=== PATIENT | male | born 1935 | race Caucasian/White ===

== ENCOUNTER 2018-01-27 10:47 | Inpatient (IN) | payer MEDICARE, BC ==
[2018-01-27] MEDS ORDERED: Lidocaine 2% 100 MG/5 ML Syringe IVPUSH PRN (11:45)
[2018-01-27] MEDS ORDERED: EPINEPHrine 1:10,000 1 MG/10 ML Syringe IVPUSH PRN (11:45)
[2018-01-27] MEDS ORDERED: Atropine 0.1 MG/ML 10 ML Syringe IVPUSH PRN (11:45)
[2018-01-27] MEDS ORDERED: Nitroglycerin 0.4 MG Tab.SL SL PRN (11:45)
[2018-01-27] MEDS ORDERED: Metoprolol Tartrate 5 MG/5 ML SDV IVPUSH ONE (12:45)
[2018-01-27 13:09] LABS: ANION GAP 14.6 mmol/L (5-15); CHLORIDE,CL 107 mmol/L (98-115); SODIUM,NA 143 mmol/L (136-145)
[2018-01-27] MEDS ORDERED: Metoprolol Tartrate 25 MG Tab PO ONE (15:00)
[2018-01-27] MEDS: Rivaroxaban 10 MG Tab PO SCH (18:59)
[2018-01-27] MEDS: Metoprolol Tartrate 25 MG Tab PO SCH (21:13)
[2018-01-27] MEDS: atorvaSTATin 40 MG Tab PO SCH (21:14)
[2018-01-28 08:14] LABS: ANION GAP 12.7 mmol/L (5-15); CHLORIDE,CL 107 mmol/L (98-115); SODIUM,NA 143 mmol/L (136-145)
[2018-01-28] MEDS: Metoprolol Tartrate 25 MG Tab PO SCH ×2 (10:49→21:01)
--- NOTE | 2018-01-28 12:08 | PN ---
01/28/2018 PATIENT NAME: MARÍA ALCALA CHIEF COMPLAINT: None. Feels good. He has been ambulating in his room with the use of a cane. HISTORY OF PRESENT ILLNESS: This is a very pleasant 82-year-old gentleman who is very laconic and soft-spoken in speech, was admitted by Dr. Singh with an incidental finding of a new onset of atrial fibrillation with rapid ventricular response up to in the 140s. He was admitted for monitoring for hemodynamic instability, rate control efforts, and possible medical conversion. REVIEW OF SYSTEMS: CONSTITUTIONAL: The patient is calm, in no acute distress. CV: Denies any chest pain. Denies any palpitations. RESPIRATORY: Denies any shortness of breath. GI: No nausea, vomiting, or diarrhea or abdominal distention. PHYSICAL EXAMINATION: VITAL SIGNS: Blood pressure 120/57, heart rate 55 and regular, temperature is 97.6, the patient is 181 pounds, and O2 sats 95% on room air. LUNGS: Are clear to auscultation. No rhonchi, wheezes, or rales. CV: Regular rate and rhythm. Murmur noted. Carotid, no bruit. LABORATORY DATA: Labs on admission, BNP was 158. Electrolytes were normal. White count 5.2, hematocrit 49.3, INR 1.0. PRIMARY IMPRESSION: Paroxysmal atrial fibrillation, now in normal sinus rhythm, rate 55 to 60. [id number] score elevated at four. The patient opted for a Factor Xa inhibitor Xarelto. We will continue daily dosing. The patient was educated this morning regarding signs and symptoms of bleeding. Continue with rate control strategy. Metoprolol tartrate 25 mg p.o. b.i.d. We will monitor him on telemetry today. SECONDARY IMPRESSION: Includes hypertension. HLD, newly increased on statin therapy, history of CVA, now off aspirin. Dysphagia on thickened liquid diet. OVERALL PLAN: Today, continue with Xarelto, beta emily. Monitor heart rate. Have the patient ambulate on the floor today with assistance to monitor for any breakthrough atrial fibrillation. Anticipate discharge in the morning with home medication Xarelto. Recommendations at followup include outpatient echocardiogram. Medication compliance. /[id number]/MODL
[2018-01-28] MEDS: Rivaroxaban 10 MG Tab PO SCH (18:07)
[2018-01-28] MEDS: atorvaSTATin 40 MG Tab PO SCH (21:02)
[2018-01-29] MEDS: Metoprolol Tartrate 25 MG Tab PO SCH (09:24)
--- NOTE | 2018-01-29 13:08 | DISCH ---
ADMITTING DIAGNOSIS: New onset atrial fibrillation with rapid ventricular response with slight hypotension. FINAL DIAGNOSIS: paroxysmal atrial fibrillation, on chronic anticoagulation therapy. BRIEF HISTORY AND ESSENTIAL PHYSICAL FINDINGS: This is an 82-year-old gentleman who has a history of a stroke, who is nonverbal due to a stroke. He does understand the spoken language very well. He usually writes his questions down on a piece of paper. He was admitted to Dr. Singh on with incidental findings of new onset atrial fibrillation with rapid ventricular response in the 140 beats per minute. The patient was just feeling sluggish, fatigued. He denies any chest pain or shortness of breath. He was just not feeling well. No energy. He was admitted to the hospital at that time. Today, the patient states that he is feeling well and would like to go home. He understands the medication Xarelto, he has read through the material. He also understands the metoprolol, we are going to send him home on for hopefully rate control and/or to keep him in sinus rhythm. He has been walking in the halls and feels fine to go home. SIGNIFICANT LABS XRAYS AND CONSULTATION FINDINGS: The patient's lab work on admission, CBC showed a white count within normal range at 5.2, hemoglobin 16.2, platelet count at 214; PT was 9.9, INR of 1.0. Chemistry panel was unremarkable except for BUN slightly elevated at 26. Brain natriuretic peptide was very slightly elevated at 158. Repeat lab work on 01/28/2018, basic metabolic panel was unremarkable. EKG that was obtained in the clinic, I do not have that in front of me, but documented that he was in atrial fibrillation at that time with rapid ventricular response. The patient is in sinus rhythm today with a rate of 54 beats per minute. COURSE IN HOSPITAL WITH COMPLICATIONS IF ANY: The patient seemed to improve once he was placed on metoprolol and his rate went to a sinus rhythm to sinus lowell. He felt more energetic and no longer felt fatigued. He has been up walking in the halls. No problems while in the hospital. No signs of bleeding once been started on the Xarelto. CONDITION TREATMENT AND FINAL DISPOSITION ON DISCHARGE AND PROGNOSIS: Condition is stable. Final disposition will be home with his at [place] [address] [place], [place]. IMPRESSION AND PLAN: 1. New onset atrial fibrillation paroxysmal. Plan: We are going to send the patient home on Xarelto 20 mg daily along with metoprolol tartrate 25 mg twice a day. 2. History of hyperlipidemia. Plan: Continue with atorvastatin 40 mg daily. OVERALL PLAN: I am going to send the patient home with his today. He will follow up in the clinic next week with Fay Duran PA-C in [place]. His discharge medications will be metoprolol tartrate 25 mg twice a day along with Xarelto 20 mg daily. He also will continue on atorvastatin 40 mg daily. The patient seems to be doing well and is eager to go home. /[id number]/MODL MTDD
== END 2018-01-29 11:45 | disposition home or self-care (01) | DRG 310 ==
LOC: KA.MS 11:23
PROVIDERS: ADMIT Family Medicine; ATTEND Family Medicine
DX: I48.0 Paroxysmal atrial fibrillation (principal); I95.9 Hypotension, unspecified; I69.320 Aphasia following cerebral infarction; E78.5 Hyperlipidemia, unspecified; R13.10 Dysphagia, unspecified; Z79.01 Long term (current) use of anticoagulants
CPT/HCPCS: 36415; 80048; 80053; 83880; 84484; 85025; 85610; 93005; A9270-GY; J3490

== ENCOUNTER 2019-04-08 10:05 | Emergency (ER) | payer MEDICARE, BC ==
--- NOTE | 2019-04-08 11:31 | EDM.PDOC ---
ED HPI GENERAL MEDICAL PROBLEM - General Chief Complaint: Upper Extremity Injury/Pain Stated Complaint: FALL--HURT RIGHT WRIST Time Seen by Provider: 04/08/19 10:25 Source of Information: Reports: Patient, Family () History Limitations: Reports: Language Barrier (previous stroke unable to speak) - History of Present Illness INITIAL COMMENTS - FREE TEXT/NARRATIVE: 83-year-old male presents emergency room Today by his for an injury to his right wrist. He fell off a step yesterday bracing his fall and landing on extended right wrist. He is complaining of pain and swelling over the right wrist today. He is non-communicable due to history of 3 previous strokes. His reports he does get some weakness on his right side up. Comes in today for further evaluation for his a right wrist injury. He denies any pain in his forearm elbow or shoulder. He denies any pain in his hand. Onset Date: 04/07/19 Location: Reports: Upper Extremity, Right Quality: Reports: Ache Severity: Moderate Improves with: Reports: Rest Worsens with: Reports: Movement Associated Symptoms: Reports: Other (swelling right wrist) Right Wrist Pain Score (Numeric/FACES): 5 - Related Data Allergies Allergy/AdvReac Type Severity Reaction Status Date / Time diphenhydramine Allergy Anaphylactic Verified 04/08/19 10:24 [From Benadryl] Shock Home Meds: Home Meds Simvastatin [Zocor] 20 mg PO BEDTIME 01/27/18 [History] Rivaroxaban [Xarelto] 20 mg PO DAILY #18 tablet 01/29/18 [Rx] Past Medical History HEENT History: Reports: Impaired Vision Respiratory History: Reports: SOB Musculoskeletal History: Reports: Arthritis, Osteoarthritis Neurological History: Reports: CVA - Infectious Disease History Infectious Disease History: Reports: Measles - Past Surgical History HEENT Surgical History: Reports: None Neurological Surgical History: Reports: None Musculoskeletal Surgical History: Reports: Knee Replacement Other Musculoskeletal Surgeries/Procedures:: patti knee Social & Family History - Family History Family Medical History: Noncontributory - Tobacco Use Smoking Status *Q: Former Smoker Used Tobacco, but Quit: Yes Month/Year Tobacco Last Used: 1969 - Caffeine Use Caffeine Use: Reports: Coffee, Soda, Tea Caffeine Use Comment: 2 cups in the morning - Recreational Drug Use Recreational Drug Use: No Review of Systems - Review of Systems Review Of Systems: ROS reveals no pertinent complaints other than HPI. ED EXAM, GENERAL - Physical Exam Exam: See Below Exam Limited By: Language Barrier General Appearance: Alert, WD/WN, No Apparent Distress Nose: Normal Inspection Head: Atraumatic Neck: Normal Inspection Respiratory/Chest: No Respiratory Distress Extremities: Other (Right upper extremity examination shows swelling over the dorsum aspect of the right wrist has tenderness over the distal radius. Has no ulnar sided tenderness. He has limited range of motion the right wrist but also has limited range of motion of his left wrist. He is able to move his fingers without discomfort. He has no tenderness or pain in the forearm or upper extremity. He has no pain with gentle pronation or supination of his at the elbow he has no radial head tenderness. Is no pain or discomfort with gentle motion of his shoulder or elbow.) Neurological: Alert, Oriented, No Motor/Sensory Deficits Skin Exam: Warm, Dry, Intact, Normal Color, No Rash Course - Vital Signs Last Recorded V/S: Last Vital Signs Temp 97.8 F 04/08/19 10:19 Pulse 88 04/08/19 10:19 Resp 18 04/08/19 10:19 BP 140/62 04/08/19 10:19 Pulse Ox 98 04/08/19 10:19 - Orders/Labs/Meds Orders: Active Orders 24 hr Category Date Time Status Wrist Comp Min 3V Lt [CR] Routine Exams 04/08/19 11:21 Ordered Wrist Comp Min 3V Rt [CR] Stat Exams 04/08/19 10:33 Ordered - Radiology Interpretation Free Text/Narrative:: xray Right wrist DJD Right Wrist xray left wrist advanced djd left wrist Departure - Departure Time of Disposition: 11:50 Disposition: Home, Self-Care 01 Condition: Good Clinical Impression: Right wrist effusion Degenerative joint disease of right wrist Qualifiers: Osteoarthritis type: primary Qualified Code(s): M19.031 - Primary osteoarthritis, right wrist Sprain of right wrist Qualifiers: Encounter type: initial encounter Qualified Code(s): S63.501A - Unspecified sprain of right wrist, initial encounter - Discharge Information Instructions: RICE Therapy for Routine Care of Injuries, [id number], Wrist Sprain, Adult, Wrist Fracture Treated With Immobilization, [id number] Referrals: Fay Duran PA-C [Primary Care Provider] - Forms: ED Department Discharge - My Orders Last 24 Hours: My Active Orders 04/08/19 10:33 Wrist Comp Min 3V Rt [CR] Stat 04/08/19 11:21 Wrist Comp Min 3V Lt [CR] Routine - Assessment/Plan Last 24 Hours: My Active Orders 04/08/19 10:33 Wrist Comp Min 3V Rt [CR] Stat 04/08/19 11:21 Wrist Comp Min 3V Lt [CR] Routine Assessment:: 1. Right wrist effusion 2. Right wrist DJD 3. Right wrist sprain Plan: 1. Cockup wrist splint for 2 weeks. 2. R.I.C.E. 3. Ice packs 4. Ibuprofen for pain and swelling as needed 5. Follow-up with primary care in 2 weeks
--- NOTE | 2019-04-08 12:22 | CR ---
[id number] RAD/RAD Wrist Left 3V Min EXAM: RAD Wrist Left 3V Min CLINICAL DATA: TRAUMA COMPARISON: NO PREVIOUS SIMILAR EXAM IS AVAILABLE. FINDINGS: Chronic deformity of the carpal bones and first carpometacarpal joint are seen There is no fracture or dislocation Degenerative changes of the first interphalangeal joint also are seen. IMPRESSION: EXTENSIVE DEGENERATIVE CHANGES NO FRACTURE OR DISLOCATION Jaiden Wiggins MD 04/08/19 7002 Thank you for allowing us to participate in the care of your patient.
--- NOTE | 2019-04-08 12:23 | CR ---
[id number] RAD/RAD Wrist Right 3V Min EXAM: RAD Wrist Right 3V Min CLINICAL DATA: TRAUMA COMPARISON: NO PREVIOUS SIMILAR EXAM IS AVAILABLE. FINDINGS: Extensive degenerative changes are seen There is no acute fracture or dislocation. IMPRESSION: EXTENSIVE DEGENERATIVE CHANGES. Jaiden Wiggins MD 04/08/19 4528 Thank you for allowing us to participate in the care of your patient.
== END 2019-04-08 11:30 | disposition home or self-care (01) ==
LOC: KA.ED 10:05
DX: S63.501A Unspecified sprain of right wrist, initial encounter (principal); M19.031 Primary osteoarthritis, right wrist; Z86.73 Personal history of transient ischemic attack (TIA), and cerebral infarction without residual deficits; Z79.899 Other long term (current) drug therapy; Z87.891 Personal history of nicotine dependence; Z88.8 Allergy status to other drugs, medicaments and biological substances; W10.9XXA Fall (on) (from) unspecified stairs and steps, initial encounter
CPT/HCPCS: 73110-LT; 73110-RT; 99283-25; 99284

== ENCOUNTER 2019-08-03 17:31 | Inpatient (IN) | payer MEDICARE, BC ==
--- NOTE | 2019-08-03 18:28 | EDM.PDOC ---
ED HPI GENERAL MEDICAL PROBLEM - General Chief Complaint: Laceration Stated Complaint: FALL Time Seen by Provider: 08/03/19 17:32 Source of Information: Reports: Patient History Limitations: Reports: Other (Patient is nonverbal due to stroke a few years ago that also affected right arm.) - History of Present Illness INITIAL COMMENTS - FREE TEXT/NARRATIVE: Patient presents with laceration near left eye that occurred when he fell while doing some exercises at the [place] at 3:00 this afternoon. It was witnessed by staff and there was no LOC or vomiting. Patient hit his head on the floor when he fell. He denies neck pain, vision change or pain anywhere else but left eye area. He is on Xarelto and was evaluated in the clinic by Fay Duran and Dr. Singh who felt he should come to ER for head CT. 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) - Related Data Allergies Allergy/AdvReac Type Severity Reaction Status Date / Time No Known Drug Allergies Allergy Cannot Verified 08/03/19 17:45 Remember Home Meds: Home Meds Simvastatin [Zocor] 20 mg PO BEDTIME 01/27/18 [History] Rivaroxaban [Xarelto] 20 mg PO DAILY #18 tablet 01/29/18 [Rx] Diltiazem HCl [Dilt-XR] 120 mg PO DAILY 08/03/19 [History] Ergocalciferol (Vitamin D2) [Vitamin D2] 50,000 unit PO WEEKLY 08/03/19 [History ] Loratadine [Claritin] 10 mg PO DAILY PRN 08/03/19 [History] Magnesium Oxide [Magnesium] 500 mg PO DAILY 08/03/19 [History] Metoprolol Tartrate 37.5 mg PO BID 08/03/19 [History] Non-Formulary Medication [NF Drug] 1 applic TOP BID 08/03/19 [History] Triamcinolone Acetonide [Triamcinolone Acetonide 0.5%] 1 applic TOP BID [History] Past Medical History HEENT History: Reports: Impaired Vision Respiratory History: Reports: SOB Musculoskeletal History: Reports: Arthritis, Osteoarthritis Neurological History: Reports: CVA - Infectious Disease History Infectious Disease History: Reports: Measles - Past Surgical History HEENT Surgical History: Reports: None Neurological Surgical History: Reports: None Musculoskeletal Surgical History: Reports: Knee Replacement Other Musculoskeletal Surgeries/Procedures:: patti knee Social & Family History - Family History Family Medical History: Noncontributory - Caffeine Use Caffeine Use: Reports: Coffee, Soda, Tea Caffeine Use Comment: 2 cups in the morning ED ROS GENERAL - Review of Systems Review Of Systems: Comprehensive ROS is negative, except as noted in HPI. ED EXAM, SKIN/RASH Exam: See Below Exam Limited By: Other (nonverbal due to stroke) General Appearance: Alert, WD/WN, No Apparent Distress Eye Exam: Bilateral Eye: EOMI, Normal Inspection, PERRL Ears: Normal External Exam, Normal Canal, Hearing Grossly Normal, Normal TMs Nose: Normal Inspection, No Blood Throat/Mouth: Normal Inspection, Normal Lips, Normal Voice, No Airway Compromise Head: Other (Gaping laceration superolateral to left eye.) Neck: Normal Inspection, Supple, Non-Tender, Full Range of Motion. No: Tender Lateral, Tender Midline Respiratory/Chest: No Respiratory Distress, Lungs Clear, Normal Breath Sounds, No Accessory Muscle Use Cardiovascular: Regular Rate, Rhythm, No Murmur GI/Abdominal: Normal Bowel Sounds, Soft, Non-Tender, No Organomegaly, No Distention Back Exam: Normal Inspection, Full Range of Motion Extremities: Normal Inspection, Normal Range of Motion, No Pedal Edema, Other ( no pain with full PROM of bilat upper and lower extremities.) Neurological: Alert, Oriented, CN II-XII Intact, Normal Cognition, No Motor/ Sensory Deficits Psychiatric: Normal Affect, Normal Mood Skin: Warm, Dry, Intact (except CC), Normal Color, No Rash ED SKIN PROCEDURES - Laceration/Wound Repair Left Lateral Forehead Appearance: Subcutaneous, Stellate, Clean Distal NVT: Neuro & Vascular Intact Anesthetic Type: Local Local Anesthesia - Lidocaine (Xylocaine): 1% with EPI Local Anesthetic Volume: 3cc Skin Prep: Chlorhexidine (Hibiciens) Exploration/Debridement/Repair: Wound Explored Closed with: Sutures Lac/Wound length In cm: 4 Suture Size: 5-0 # of Sutures: 8 Suture Type: Nylon, Interrupted, Simple Drain Placement: No Sterile Dressing Applied: Nurse Tetanus Status Addressed: Other (we are trying to find out from [place] but this was not exposed to dirt or outdoor environment) Complications: No Course - Vital Signs Last Recorded V/S: Last Vital Signs Temp 96.2 F 08/03/19 17:37 Pulse 117 H 08/03/19 17:37 Resp 18 08/03/19 17:37 BP 143/83 H 08/03/19 17:37 Pulse Ox - Orders/Labs/Meds Orders: Active Orders 24 hr Category Date Time Status Head wo Cont [CT] Stat Exams 08/03/19 17:52 Ordered - Re-Assessments/Exams Free Text/Narrative Re-Assessment/Exam: 08/03/19 18:53 CT of head shows thickening of right cerebellar tentorium that could be either chronic due to encephalomalacia from an old infarct or could be a small amount of acute subarachnoid blood. Radiologist recommends either repeat CT in 24 hours or frequent neuro checks for any change. I discussed findings and recommendations with Dr. Singh who wants to keep him in observation for neuro checks and will decide on CT in the morning. Patient is stable. 08/03/19 19:41 Laceration of left lateral eyebrow, eyelid and forehead was performed using sterile technique as described in procedure note. Patient tolerated the procedure well. We found in his records that he isn't due for tetanus update until February 2021. Stable at time of admission to observation. Departure - Departure Time of Disposition: 19:44 Disposition: Refer to Observation Condition: Good Clinical Impression: Facial laceration Qualifiers: Encounter type: initial encounter Qualified Code(s): S01.81XA - Laceration without foreign body of other part of head, initial encounter Laceration of eyebrow, left Qualifiers: Encounter type: initial encounter Qualified Code(s): S01.112A - Laceration without foreign body of left eyelid and periocular area, initial encounter Laceration of eyelid and periocular area Qualifiers: Encounter type: initial encounter Laterality: left Qualified Code(s): S01.112A - Laceration without foreign body of left eyelid and periocular area, initial encounter - Discharge Information Referrals: Fay Duran PA-C [Primary Care Provider] - Sepsis Event Note - Evaluation Sepsis Screening Result: No Definite Risk - Focused Exam Vital Signs: Vital Signs Temp Pulse Resp BP 08/03/19 17:37 96.2 F 117 H 18 143/83 H Date Exam was Performed: 08/03/19 Time Exam was Performed: 18:22 - My Orders Last 24 Hours: My Active Orders 08/03/19 17:52 Head wo Cont [CT] Stat - Assessment/Plan Last 24 Hours: My Active Orders 08/03/19 17:52 Head wo Cont [CT] Stat
--- NOTE | 2019-08-03 18:36 | CT ---
[id number] CT/CT Head WO IV EXAM: CT Head WO IV CLINICAL DATA: FALL. COMPARISON STUDY: 2012. FINDINGS: Thickening of the right cerebellar tentorium compared to the left with increased density findings are seen best on coronal imaging on series 6 image 42. This could represent chronic dural thickening as it is adjacent to an area of encephalomalacia from an old infarction. However a small amount of acute subarachnoid blood is also possible. Follow-up examination within 12 and 24 hours can be performed to evaluate for stability or resolution of these findings as clinically warranted. No other potentially acute findings in the brain. Paranasal sinuses and mastoid air cells are clear. IMPRESSION: Possible small amount of subarachnoid blood layering on the right cerebellar tentorium, described above with recommendations. Results relayed to Calin Smith at time of dictation. George Wang MD 08/03/19 5640 Thank you for allowing us to participate in the care of your patient.
[2019-08-03] MEDS ORDERED: Lidocaine 1% 20 ML MDV ONE (19:05)
[2019-08-03] MEDS ORDERED: Lidocaine 1% 20 ML MDV INJECT ONE (19:13)
[2019-08-03] MEDS ORDERED: Bacitracin/Neomycin/Polymyxin B Oint 0.9 GM U/D Packet ONE (19:33)
[2019-08-03] MEDS ORDERED: Acetaminophen 325 MG Tab PO PRN (21:16)
[2019-08-03] MEDS: Simvastatin 20 MG Tab PO SCH (21:40)
[2019-08-03] MEDS: Metoprolol Tartrate 25 MG Tab PO SCH (21:41)
[2019-08-04] MEDS ORDERED: Diltiazem 120 MG Cap.CD PO SCH (09:00)
[2019-08-04] MEDS: Rivaroxaban 10 MG Tab PO SCH (09:43)
[2019-08-04] MEDS: Magnesium Oxide 500 MG Tab PO SCH (09:43)
--- NOTE | 2019-08-04 09:43 | PCM.DCSUM1 ---
Discharge Summary - Hospital Course Diagnosis: Stroke: No - Discharge Data Discharge Date: 08/04/19 Discharge Disposition: DC/Tfer to SNF 03 Condition: Good - Referral to Home Health Primary Care Physician: Fay Duran PA-C - Discharge Plan Home Medications: Home Meds Simvastatin [Zocor] 20 mg PO BEDTIME 01/27/18 [History] Rivaroxaban [Xarelto] 20 mg PO DAILY #18 tablet 01/29/18 [Rx] Diltiazem HCl [Dilt-XR] 120 mg PO DAILY 08/03/19 [History] Ergocalciferol (Vitamin D2) [Vitamin D2] 50,000 unit PO WEEKLY 08/03/19 [History ] Loratadine [Claritin] 10 mg PO DAILY PRN 08/03/19 [History] Magnesium Oxide [Magnesium] 500 mg PO DAILY 08/03/19 [History] Metoprolol Tartrate 37.5 mg PO BID 08/03/19 [History] Non-Formulary Medication [NF Drug] 1 applic TOP BID 08/03/19 [History] Triamcinolone Acetonide [Triamcinolone Acetonide 0.5%] 1 applic TOP BID [History] Forms: ED Department Discharge Referrals: Fay Duran PA-C [Primary Care Provider] - - General Info Date of Service: 08/04/19 Functional Status: Reports: Pain Controlled, Tolerating Diet. Denies: Ambulating, New Symptoms - Review of Systems General: Reports: Weakness (on right side stated at baseline). Denies: Fatigue , Chills, Night Sweats HEENT: Reports: Eye Pain (laceration and bruising on left eye), Glasses (states were broken during fall). Denies: Headaches, Visual Changes Pulmonary: Reports: Cough (chronic). Denies: Shortness of Breath, Sputum, Hemoptysis, Wheezing Cardiovascular: Reports: Edema (right leg). Denies: Chest Pain, Lightheadedness Gastrointestinal: Reports: Difficulty Swallowing (previous stroke). Denies: Abdominal Pain, Constipation, Decreased Appetite, Diarrhea, Nausea, Vomiting Genitourinary: Denies: Dysuria, Hematuria Musculoskeletal: Reports: No Symptoms. Denies: Neck Pain, Shoulder Pain, Arm Pain, Back Pain Skin: Reports: Bruising (under left eye), Other (telfa dressing intact over laceration to left side of head by eye) Neurological: Reports: Pre-Existing Deficit (right sided facial droop, right sided weakness from previous strokes), Trouble Speaking (communication via board with pen and paper), Difficulty Walking, Weakness (right side). Denies: Confusion, Dizziness, Headache, Numbness, Paresthesia, Seizure, Tingling, Change in Speech Psychiatric: Reports: No Symptoms. Denies: Confusion, Depression, Mood Lability , Anxiety - Patient Data Vitals - Most Recent: Last Vital Signs Temp 36.9 C 08/04/19 06:30 Pulse 123 H 08/04/19 06:30 Resp 18 08/04/19 06:30 BP 112/70 08/04/19 06:30 Pulse Ox 96 08/04/19 06:30 Weight - Most Recent: 72.529 kg I&O - Last 24 hours: Intake & Output 08/03/19 08/04/19 08/04/19 22:59 06:59 14:59 Intake Total 0 Balance 0 Med Orders - Current: Current Medications Acetaminophen (Tylenol) 650 mg PO Q4H PRN PRN Reason: Pain (Mild 1-3)/fever Diltiazem HCl (Cardizem Cd) 120 mg PO DAILY [facility] Magnesium Oxide (Magnesium Oxide) 500 mg PO DAILY [facility] Metoprolol Tartrate (Lopressor) 37.5 mg PO BID [facility] Last Admin: 08/03/19 21:41 Dose: 37.5 mg Rivaroxaban (Xarelto) 20 mg PO DAILY [facility] Simvastatin (Zocor) 20 mg PO BEDTIME [facility] Last Admin: 08/03/19 21:40 Dose: 20 mg Discontinued Medications Lidocaine HCl (Xylocaine 1%) Confirm Administered Dose 20 ml .ROUTE .STK-MED ONE Stop: 08/03/19 19:06 Last Admin: 08/03/19 19:14 Dose: Not Given Lidocaine HCl (Xylocaine 1%) 3.5 ml INJECT ONETIME ONE Stop: 08/03/19 19:14 Last Admin: 08/03/19 19:15 Dose: 3.5 ml Neomycin/Polymyxin/Bacitracin (Triple Antibiotic Oint) Confirm Administered Dose 1 each .ROUTE .STK-MED ONE Stop: 08/03/19 19:34 Last Admin: 08/03/19 19:46 Dose: 1 each - Exam Quality Assessment: Denies: Supplemental Oxygen General: Reports: Alert, Oriented, Cooperative, No Acute Distress HEENT: Reports: Pupils Equal, Pupils Reactive, Mucous Membr. Moist/[place]. Denies : EOMI (EOM not smooth, moves head) Neck: Reports: Supple, Trachea Midline, No JVD Lungs: Reports: Rhonchi (right mid and right upper lobes), Wheezing (expiratory wheezing throughout) Cardiovascular: Reports: No Murmurs, Irregular Rhythm, Tachycardia GI/Abdominal Exam: Normal Bowel Sounds, Soft, Non-Tender, No Distention (Male) Exam: Deferred Rectal (Males) Exam: Deferred Back Exam: Reports: Normal Inspection. Denies: Paraspinal Tenderness, Vertebral Tenderness Extremities: Normal Capillary Refill, Pedal Edema (RLE 2+ with mild erythema), Other (right lateral knee edematous from previous injury on the lateral side of the knee) Skin: Reports: Warm, Dry, Intact Wound/Incisions: Reports: Dressing Dry and Intact (left side of head muslim area ), No Drainage Neurological: Reports: Sensation Intact. Denies: Normal Speech, Strength Equal Bilateral (woodworking belt sander strength on right 3/5; woodworking belt sander strength on left 4/5) Psy/Mental Status: Reports: Alert, Normal Affect, Normal Mood
--- NOTE | 2019-08-04 10:07 | PCM.HP.2 ---
H&P History of Present Illness - General Date of Service: 08/03/19 Admit Problem/Dx: Admission Diagnosis/Problem Admission Diagnosis/Problem Head injury without skull fracture - Related Data Allergies/Adverse Reactions: Allergies Allergy/AdvReac Type Severity Reaction Status Date / Time No Known Drug Allergies Allergy Cannot Verified 08/03/19 17:45 Remember Home Medications: Home Meds Simvastatin [Zocor] 20 mg PO BEDTIME 01/27/18 [History] Rivaroxaban [Xarelto] 20 mg PO DAILY #18 tablet 01/29/18 [Rx] Diltiazem HCl [Dilt-XR] 120 mg PO DAILY 08/03/19 [History] Ergocalciferol (Vitamin D2) [Vitamin D2] 50,000 unit PO WEEKLY 08/03/19 [History ] Loratadine [Claritin] 10 mg PO DAILY PRN 08/03/19 [History] Magnesium Oxide [Magnesium] 500 mg PO DAILY 08/03/19 [History] Metoprolol Tartrate 37.5 mg PO BID 08/03/19 [History] Non-Formulary Medication [NF Drug] 1 applic TOP BID 08/03/19 [History] Triamcinolone Acetonide [Triamcinolone Acetonide 0.5%] 1 applic TOP BID [History] Dimethicone/Petrolatum,White [Sensi-Care Body Cream] 1 gm TP BID 08/04/19 [ History] Menthol/Camphor [Sarna Anti-Itch Lotion] 1 ml TP QID PRN 08/04/19 [History] Past Medical History HEENT History: Reports: Impaired Vision Cardiovascular History: Reports: Afib, High Cholesterol, Hypertension Respiratory History: Reports: SOB Gastrointestinal History: Reports: None Genitourinary History: Reports: Other (See Below) Other Genitourinary History: Dysuria Musculoskeletal History: Reports: Arthritis, Osteoarthritis Neurological History: Reports: CVA, Speech Problems, Other (See Below) Other Neuro History: Expressive Aphasia Psychiatric History: Reports: None Endocrine/Metabolic History: Reports: None Dermatologic History: Reports: Other (See Below) Other Dermatologic History: Cellulitis to Rt Leg - Infectious Disease History Infectious Disease History: Reports: Measles - Past Surgical History HEENT Surgical History: Reports: Other (See Below) Other HEENT Surgeries/Procedures: Dysphagia Cardiovascular Surgical History: Reports: Carotid Endarterectomy Respiratory Surgical History: Reports: None GI Surgical History: Reports: None Endocrine Surgical History: Reports: None Neurological Surgical History: Reports: Lumbar Spine Musculoskeletal Surgical History: Reports: Knee Replacement Other Musculoskeletal Surgeries/Procedures:: Jared knee Dermatological Surgical History: Reports: None Social & Family History - Family History Family Medical History: Noncontributory - Tobacco Use Smoking Status *Q: Former Smoker Years of Tobacco use: 4 Used Tobacco, but Quit: Yes Month/Year Tobacco Last Used: 1970 - Caffeine Use Caffeine Use: Reports: None Caffeine Use Comment: 2 cups in the morning - Recreational Drug Use Recreational Drug Use: No H&P Review of Systems - Review of Systems: Review Of Systems: See Below General: Reports: Weakness (right sided weakness from previous strokes). Denies : Fever, Chills, Malaise HEENT: Reports: Glasses (broke in fall). Denies: Eye Pain, Headaches, Visual Changes Pulmonary: Denies: Shortness of Breath Cardiovascular: Reports: Edema (RLE). Denies: Chest Pain, Palpitations, Lightheadedness Gastrointestinal: Denies: Abdominal Pain, Nausea, Vomiting Genitourinary: Reports: No Symptoms Musculoskeletal: Reports: No Symptoms. Denies: Neck Pain, Back Pain, Leg Pain Skin: Reports: Bruising (under left eye), Erythema (RLE) Psychiatric: Denies: Confusion Neurological: Reports: Pre-Existing Deficit (right sided weakness due to previous strokes), Trouble Speaking (pre existing, patient communicates with paper and pen), Weakness (right sided pre existing ). Denies: Confusion, Dizziness, Headache, Syncope, Change in Speech Exam - Exam Exam: See Below - Vital Signs Vital Signs: Last Vital Signs Temp 36.9 C 08/04/19 06:30 Pulse 123 H 08/04/19 06:30 Resp 18 08/04/19 06:30 BP 112/70 08/04/19 06:30 Pulse Ox 96 08/04/19 06:30 Weight: 72.529 kg - Exam Quality Assessment: No: Supplemental Oxygen General: Alert, Oriented, Cooperative HEENT: Hearing Intact, Pupils Equal, Pupils Reactive. No: EOMI (difficulty with EOM, unsure if pre-existing from prior CVA) Neck: Supple, Trachea Midline Lungs: Crackles (right mid and upper), Wheezing (expiratory bilaterally) Cardiovascular: Irregular Rhythm, Tachycardia. No: Systolic Murmur, Diastolic Murmur GI/Abdominal Exam: Normal Bowel Sounds, Soft, Non-Tender, No Distention (Male) Exam: Deferred Rectal (Males) Exam: Deferred Back Exam: Normal Inspection. No: Paraspinal Tenderness, Vertebral Tenderness Extremities: Pedal Edema (RLE edema 2+, no edema LLE), Increased Warmth (RLE, especially over edematous lateral area of right knee) Peripheral Pulses: 2+: Radial (L), Radial (R), Dorsalis Pedis (L), Dorsalis Pedis (R) Skin: Warm, Dry, Ecchymosis (under left eye), Wound (laceration to left samaritan) Neurological: Sensation Intact. No: Strength Equal Bilateral (Network Systems Analyst strength 3+ on the right and 4+ on the left) Neuro Extensive - Mental Status: Alert, Oriented x3, Normal Mood/Affect, Nl Response to Commands Neuro Extensive - Motor, Sensory, Reflexes: Facial Palsy (R) (right facial droop ), Other (unable to stick out tongue) Psychiatric: Alert, Normal Affect, Normal Mood - Patient Data Result Diagrams: 08/04/19 10:55 08/04/19 10:55 Sepsis Event Note - Evaluation Sepsis Screening Result: No Definite Risk - Focused Exam Vital Signs: Vital Signs Temp Pulse Resp BP Pulse Ox 08/04/19 06:30 36.9 C 123 H 18 112/70 96 08/04/19 03:00 37.0 C 124 H 18 101/63 96 08/03/19 23:04 36.7 C 120 H 18 116/76 98 Date Exam was Performed: 08/04/19 Time Exam was Performed: 11:43 Problem List Initiated/Reviewed/Updated: Yes Orders Last 24hrs: Active Orders 24 hr Category Date Time Status Patient Status [ADT] Routine ADT 08/03/19 19:50 Active Communication Order [RC] ROUTINE Care 08/03/19 21:19 Active Neuro Check [RC] Q4HR Care 08/03/19 21:18 Active Oxygen Therapy [RC] PRN Care 08/03/19 21:17 Active Up With Assistance [RC] ASDIRECTED Care 08/03/19 21:16 Active VTE/DVT Education [RC] PER UNIT ROUTINE Care 08/03/19 21:17 Active Vital Signs [RC] Q4H Care 08/03/19 21:17 Active Heart Healthy Diet [DIET] Diet 08/04/19 Breakfast Active Head wo Cont [CT] Routine Exams 08/04/19 09:12 Ordered Acetaminophen [Tylenol] Med 08/03/19 21:16 Active 650 mg PO Q4H PRN Diltiazem [Cardizem CD] Med 08/04/19 09:00 Active 120 mg PO DAILY Magnesium Oxide Med 08/04/19 09:00 Active 500 mg PO DAILY Metoprolol Tartrate [Lopressor] Med 08/03/19 21:30 Active 37.5 mg PO BID Rivaroxaban [Xarelto] Med 08/04/19 09:00 Active 20 mg PO DAILY Simvastatin [Zocor] Med 08/03/19 21:00 Active 20 mg PO BEDTIME Code Status [Resuscitation Status] Routine Resus Stat 08/03/19 22:22 Ordered Medication Orders Acetaminophen (Tylenol) 650 mg PO Q4H PRN PRN Reason: Pain (Mild 1-3)/fever Diltiazem HCl (Cardizem Cd) 120 mg PO DAILY [facility] Magnesium Oxide (Magnesium Oxide) 500 mg PO DAILY [facility] Metoprolol Tartrate (Lopressor) 37.5 mg PO BID [facility] Last Admin: 08/03/19 21:41 Dose: 37.5 mg Rivaroxaban (Xarelto) 20 mg PO DAILY [facility] Simvastatin (Zocor) 20 mg PO BEDTIME [facility] Last Admin: 08/03/19 21:40 Dose: 20 mg Assessment/Plan Comment:: Admission History & Physical History of Present Illness 84 year old male admitted observation from the ED on 08/03/2019 after falling at the correction at approximately 1500 in the afternoon. The fall was witnessed by correction starff. He hit his head, no LOC, no N/V. He was sent to the ED from the [facility] due to need for head CT. No neck pain or back pain. No vision changes. He did sustain a laceration to the left samaritan area and bruising to the left eye. He does take Xarelto for atrial fibrillation. Hospital Course to Date: He was noted to have tachycardia (120s) overnight and on admission. He is asymptomatic. EKG done showing atrial flutter with rate at 116, no ST elevation in contiguous leads. EKG compared to previous, no significant changes note. Patient placed on telemetry. Current EKG and previous EKG sent to [facility] for cardiology review. Optical Glass Inspector in agreement that there is not ST elevation. Work up with troponin <0.04, myoglobin, CK-MB 0.50, BMP ( unremarkable), and CBC. MAP 78. Optical Glass Inspector recommendation to start patient on oral metoprolol tartrate 25mg three times daily, first dose now. Will continue to monitor on telemetry and possibly add digoxin dependent upon heart rate response to metoprolol. No new neurologic deficit noted overnight by nursing staff. There is right sided weakness from previous CVA. Will repeat CT of head as it is unknown by this publicity writer what the baseline neurological deficit was present prior to fall. Repeat CT does not show evidence of hemorrhage. Patient also noted to have right lower leg pitting edema, approximately 1+ and erythema. He does have a hematoma on the right lateral side of his knee, which has been present since prior to his previous admission. CT imaging on 2018 confirmed a fluid collection suspicious for hematoma. He was treated with Vancomycin IV, which was de-escalated to Keflex during his hospital stay at [facility] in [place]. On follow up on 07/25/19 it was noted that he continued to have erythema and edema. He was restarted on cephalexin at that time for seven days, which was completed on 08/01/2019. WBC 4.4 without neutrophilia. Pertinent ED Work-Up/Hospital Course To Date ED: --Head CT wo contrast (08/03/2019): Thickening of the right cerebellar tentorium that could be either chronic due to encephalomalacia from an old infarct or could be a small amount of acute subarachnoid blood. --CBC (08/01/2019, done while in correction): WBC 6.5, Hgb 12.2, Hct 38.5, Plt 369, Neutrophils 4500 --CMP (07/28/2019, done while in correction): Creat. 0.94, GFR 77, Na 141, K 4.4, Cl 105 --Laceration was repaired in the ED to left lateral eyebrow, eyelid and forehead --Repeat Head CT (08/04/2019): No evidence of hemorrhage --EKG (08/04/2019): Atrial flutter, rate 116, no contiguous ST elevation --Hematology (08/04/2019): Troponin <0.04, CK-MB 0.50, BMP unremarkable, WBC 4.4 , Hgb 11.6, Hct 35.7 Primary Hospital Problems: --Atrial flutter with tachycardia --Head injury s/p fall --Right lower leg hematoma with cellulitis Chronic, Stable Conditions: --Hx CVA, on rivaroxaban therapy -Expressive aphasia, Dysphagia --Essential Hypertension --Hypercholesterolemia --Anemia --CKD stage 2 --Osteoarthritis --Repeat Falls FEN: Saline lock; Electrolytes unremarkable. Heart healthy diet, puree with pudding thick consistency liquids PPX: Taking Xarelto for chronic anticoagulation Code Status: Full Code Emergency Contact: , Jennifer; updated via telephone Disposition: Change status to inpatient. Disposition/Overall Plan: --Admit to inpatient status with telemetry monitoring --Repeat troponin at 1445 today --Repeat EKG if develops chest pain or any rhythm change --Change metoprolol tartrate to 25mg orally three times daily --Change diltiazem IR to 30mg orally three times daily --Try to keep RLE elevated as much as possible. --US of swelling on the right lateral knee/upper calf to evaluate presence of hematoma vs abscess, currently afebrile without neutrophilia --Vaseline with telfa over laceration site around left eye --[facility] 08[facility]2019 if able to achieve rate control - Mortality Measure Prognosis:: Good
[2019-08-04] MEDS ORDERED: Metoprolol Tartrate 5 MG/5 ML SDV IVPUSH ONE ×4 (11:00→11:10)
--- NOTE | 2019-08-04 11:05 | CT ---
[id number] CT/CT Head WO IV EXAM: CT Head WO IV CLINICAL DATA: TRAUMA POSSIBLE INTRACRANIAL HEMORRHAGE COMPARISON: CORRELATION IS MADE WITH YESTERDAY'S EXAM FINDINGS: There is no mass or mass effect. There is no hemorrhage or hydrocephalus. There are no extra-axial fluid collections. There are no sites of abnormal attenuation. IMPRESSION: No definite hemorrhage seen currently No acute process Jaiden Wiggins MD 08/04/19 0058 Thank you for allowing us to participate in the care of your patient.
[2019-08-04] MEDS: Metoprolol Tartrate 25 MG Tab PO SCH ×4 (11:17→21:19)
[2019-08-04 11:29] LABS: ANION GAP 14.8 mmol/L (5-15); CHLORIDE,CL 101 mmol/L (98-115); SODIUM,NA 141 mmol/L (136-145)
[2019-08-04] MEDS: Diltiazem IR 30 MG Tab PO SCH ×3 (13:15→21:19)
[2019-08-04] MEDS: Simvastatin 20 MG Tab PO SCH (21:19)
[2019-08-05] MEDS: Diltiazem IR 30 MG Tab PO SCH (06:01)
[2019-08-05] MEDS: Metoprolol Tartrate 25 MG Tab PO SCH (09:06)
[2019-08-05] MEDS: Rivaroxaban 10 MG Tab PO SCH (09:08)
[2019-08-05] MEDS: Magnesium Oxide 500 MG Tab PO SCH (09:08)
--- NOTE | 2019-08-05 12:00 | PCM.DCSUM1 ---
Discharge Summary - Hospital Course Free Text/Narrative:: Date of admission: 08/03/2019 Date of discharge: 08/05/2019 Admission diagnoses: Head injury without skull fracture; Laceration of the left eye; RLE hematoma with recent cellulitis Discharge diagnoses: Head injury without skull fracture; laceration of the left eye; atrial flutter with RVR; RLE hematoma Consultations: Cardiology through [facility] 08/04/18. Hospital course: Mr. Trejo is an 84 year old male who is a resident at [facility] in [place] and was originally admitted to the [facility] on the evening of 08/03/2019 following a fall witnessed by halfway staff. Patient did hit his head without LOC and a notable laceration the left temporal region. Patient was sent from the [facility] to the ER. Initial CT done in the ER with a possible small amount of subarachnoid blood layer on the right cerebellar tentorium with recommendations for repeat imaging in 12-24 hours. Patient was admitted overnight for neurological monitoring without notable change from patient baseline and follow-up CT was done on 08/04 with no definite hemorrhage seen/no acute process. Overnight on 08/03-08/04 patients HR was noted to be consistently elevated in the 120s. An EKG was done with noted atrial flutter with rate of 116, no ST elevation in contiguous leads. Consult was placed with cardiology for EKG review given question of ST changes. Serial troponins negative. CBC, BMP, CK-MB, Myolgobin normal. Prior magnesium and TSH normal. Patient does have a history of atrial fibrillation and is on anticoagulation Rivaroxaban therapy. Patients metoprolol tartrate was changed from 37.5mg BID to 25mg TID and Cardizem was changed from Cardizem SR 120mg to IR 30mg TID during hospitalization. Baseline HR did improve with medication adjustments to 80-90BPM with intermittent tachycardia. Maximum HR during hospitalization did not exceed 125bpm. BP remained stable. Patient was asymptomatic. Of note patient was recently hospitalized at [facility] in [place] 07/17/19- for hematoma of the RLE and cellulitis. During hospitalization patient was noted to have alternating atrial fibrillation/flutter with RVR with HRs in the 120s. He was initially started on a Diltiazem drip and then was switched to PO diltiazem and metoprolol. He is followed by cardiology and was seen by cardiology on 08/03/2019 at [facility] in [place] prior to his fall and subsequent hospitalization here. HR was 122 during cardiology appointment with no medication changes reported at that time, though OV note is not completed. Patient overall had good clinical improvement and stable neurological functioning during hospitalization. He was discharged back to [facility] on prior home medications with the following mediation adjustments: - Increase metoprolol Tartrate from 37.5mg BID to 25mg TID - Change in Cardizem from 120mg SR to 30mg TID IR. Patient will follow-up on halfway rounds with Dr. Yoselin Calderon on 2019. Diagnosis: Stroke: No - Discharge Data Discharge Date: 08/05/19 Discharge Disposition: DC/Tfer to SNF 03 Condition: Fair - Referral to Home Health Primary Care Physician: Fay Duran PA-C - Discharge Diagnosis/Problem(s) (1) Head injury without skull fracture SNOMED Code(s): 26604808 ICD Code: S09.90XA - UNSPECIFIED INJURY OF HEAD, INITIAL ENCOUNTER Status: Acute (2) Laceration of eyelid and periocular area SNOMED Code(s): 64192445 ICD Code: S01.119A - LACERATION W/O FB OF UNSP EYELID AND PERIOCULAR AREA, INIT Status: Acute Qualifiers: Encounter type: initial encounter Laterality: left Qualified Code(s): S01.112A - Laceration without foreign body of left eyelid and periocular area, initial encounter (3) Atrial flutter with rapid ventricular response SNOMED Code(s): 8662242, 6205959 ICD Code: I48.92 - UNSPECIFIED ATRIAL FLUTTER Status: Acute (4) Hematoma of right lower extremity SNOMED Code(s): 901649951 ICD Code: S80.11XA - CONTUSION OF RIGHT LOWER LEG, INITIAL ENCOUNTER Status : Acute - Patient Instructions Diet: Heart Healthy Diet, Pureed Diet, Other: Puree with Pudding Thick Liquids Driving: Do Not Drive Showering/Bathing: May Shower Notify Provider of: Fever, Swelling and Redness Other/Special Instructions: Notify provider of any changes/worsening of symptomology to the RLE including increased swelling, redness, warmth, fever, or chills. Document vital signs BID with close monitoring of blood pressure and HR. Notify provider of systolic BP <90. Notify provider of HR >125. - Discharge Plan *PRESCRIPTION DRUG MONITORING PROGRAM REVIEWED*: Not Applicable *COPY OF PRESCRIPTION DRUG MONITORING REPORT IN PATIENT GIA: Not Applicable Prescriptions/Med Rec: Diltiazem IR [Cardizem] 30 mg PO Q8HR #90 tablet Metoprolol Tartrate [Lopressor] 25 mg PO TID #90 tablet Home Medications: Home Meds Simvastatin [Zocor] 20 mg PO BEDTIME 01/27/18 [History] Rivaroxaban [Xarelto] 20 mg PO DAILY #18 tablet 01/29/18 [Rx] Ergocalciferol (Vitamin D2) [Vitamin D2] 50,000 unit PO WEEKLY 08/03/19 [History ] Loratadine [Claritin] 10 mg PO DAILY PRN 08/03/19 [History] Magnesium Oxide [Magnesium] 500 mg PO DAILY 08/03/19 [History] Non-Formulary Medication [NF Drug] 1 applic TOP BID 08/03/19 [History] Triamcinolone Acetonide [Triamcinolone Acetonide 0.5%] 1 applic TOP BID [History] Dimethicone/Petrolatum,White [Sensi-Care Body Cream] 1 gm TP BID 08/04/19 [ History] Menthol/Camphor [Sarna Anti-Itch Lotion] 1 ml TP QID PRN 08/04/19 [History] Diltiazem IR [Cardizem] 30 mg PO Q8HR #90 tablet 08/05/19 [Rx] Metoprolol Tartrate [Lopressor] 25 mg PO TID #90 tablet 08/05/19 [Rx] Oxygen Therapy Mode: Room Air Forms: ED Department Discharge Referrals: Fay Duran PA-C [Primary Care Provider] - Yoselin Calderon MD [Physician] - 08/07/19 (Follow-up with Dr. Yoselin Calderon as scheduled on halfway rounds 08/07/18. ) - Discharge Summary/Plan Comment DC Time >30 min.: Yes - General Info Date of Service: 08/05/19 - Review of Systems General: Denies: Fever HEENT: Reports: Glasses. Denies: Headaches, Visual Changes Pulmonary: Denies: Shortness of Breath, Cough Cardiovascular: Reports: Edema (RLE). Denies: Chest Pain, Palpitations, Dyspnea on Exertion, Orthopnea Gastrointestinal: Reports: No Symptoms Genitourinary: Reports: No Symptoms Musculoskeletal: Denies: Neck Pain, Back Pain, Joint Pain Skin: Reports: Other (Hematoma to RLE. bruising to left eye. ) Neurological: Reports: Pre-Existing Deficit, Weakness (right sided weakness from prior stroke. no new deficit.), Other Psychiatric: Reports: No Symptoms Systems Review Comment: Patient communicates through paper and pen and nonverbal cues due to pre- existing deficit. - Patient Data Vitals - Most Recent: Last Vital Signs Temp 97.3 F 08/05/19 11:00 Pulse 62 08/05/19 11:00 Resp 16 08/05/19 11:00 BP 100/65 08/05/19 11:00 Pulse Ox 97 08/05/19 11:00 Weight - Most Recent: 153 lb 7 oz I&O - Last 24 hours: Intake & Output 08/04/19 08/05/19 08/05/19 22:59 06:59 14:59 Intake Total 180 50 Balance 180 50 Lab Results - Last 24 hrs: Laboratory Results - last 24 hr 08/04/19 08/04/19 Range/Units 10:55 14:52 Myoglobin 19 (17-106) ng/mL Troponin I < 0.04 (0.00-0.070) ng/mL Med Orders - Current: Current Medications Acetaminophen (Tylenol) 650 mg PO Q4H PRN PRN Reason: Pain (Mild 1-3)/fever Diltiazem HCl (Cardizem) 30 mg PO Q8HR [facility] Last Admin: 08/05/19 06:01 Dose: 30 mg Magnesium Oxide (Magnesium Oxide) 500 mg PO DAILY [facility] Last Admin: 08/05/19 09:08 Dose: 500 mg Metoprolol Tartrate (Lopressor) 25 mg PO TID [facility] Last Admin: 08/05/19 09:06 Dose: 25 mg Rivaroxaban (Xarelto) 20 mg PO DAILY [facility] Last Admin: 08/05/19 09:08 Dose: 20 mg Simvastatin (Zocor) 20 mg PO BEDTIME [facility] Last Admin: 08/04/19 21:19 Dose: 20 mg Discontinued Medications Diltiazem HCl (Cardizem Cd) 120 mg PO DAILY [facility] Last Admin: 08/04/19 11:17 Dose: Not Given Lidocaine HCl (Xylocaine 1%) Confirm Administered Dose 20 ml .ROUTE .STK-MED ONE Stop: 08/03/19 19:06 Last Admin: 08/03/19 19:14 Dose: Not Given Lidocaine HCl (Xylocaine 1%) 3.5 ml INJECT ONETIME ONE Stop: 08/03/19 19:14 Last Admin: 08/03/19 19:15 Dose: 3.5 ml Metoprolol Tartrate (Lopressor) 37.5 mg PO BID [facility] Last Admin: 08/04/19 11:17 Dose: Not Given Metoprolol Tartrate (Lopressor) 5 mg IVPUSH ONETIME ONE Stop: 08/04/19 11:01 Last Admin: 08/04/19 11:40 Dose: Not Given Neomycin/Polymyxin/Bacitracin (Triple Antibiotic Oint) Confirm Administered Dose 1 each .ROUTE .STK-MED ONE Stop: 08/03/19 19:34 Last Admin: 08/03/19 19:46 Dose: 1 each - Exam Quality Assessment: Denies: Supplemental Oxygen General: Reports: Alert, Oriented, Cooperative. Denies: No Acute Distress HEENT: Reports: Pupils Equal, Pupils Reactive, Mucous Membr. Moist/Quail, Other ( difficulty assessing EOM) Neck: Reports: Supple Lungs: Reports: Normal Respiratory Effort, Wheezing (mild expiratory wheeze. ) Cardiovascular: Reports: Irregular Rhythm, Other (HR currently 86. ) GI/Abdominal Exam: Normal Bowel Sounds, Soft, Non-Tender (Male) Exam: Deferred Rectal (Males) Exam: Deferred Back Exam: Denies: Paraspinal Tenderness, Vertebral Tenderness Extremities: Pedal Edema (RLE 2+ edema. Hematoma lateral to the right knee, nontender to palpation. there is mild erythema of the lower extremity. no significant temperature difference.). No: Slow Capillary Refill, Increased Warmth Skin: Reports: Ecchymosis (ecchymosis to the left eye. laceration to the left eye brow/temporal region. ) Wound/Incisions: Reports: Dressing Dry and Intact Neurological: Reports: No New Focal Deficit, Sensation Intact. Denies: Normal Speech (pre-existing deficit. communcation through writing and nonverbal cues. ) , Strength Equal Bilateral (preexisting deficit/weaknes to the right. rn float strenght 3+ to the right 4+ to the left. ) Psy/Mental Status: Reports: Alert
[2019-08-05] MEDS ORDERED: Diltiazem IR 30 MG Tab PO ONE (12:24)
== END 2019-08-05 13:00 | DRG 605 ==
LOC: KA.ED 17:31 → KA.MS 19:50 → OBSVTOIN 08-04 12:08
PROVIDERS: ADMIT Physician Assistant Surgical; ATTEND Family Medicine
PROC: 0HQ1XZZ Repair Face Skin, External Approach (ICD-10-PCS; principal; 2019-08-04)
DX: S01.81XA Laceration without foreign body of other part of head, initial encounter (principal); S05.32XA Ocular laceration without prolapse or loss of intraocular tissue, left eye, initial encounter; W19.XXXA Unspecified fall, initial encounter; H54.7 Unspecified visual loss; M19.90 Unspecified osteoarthritis, unspecified site; Z86.73 Personal history of transient ischemic attack (TIA), and cerebral infarction without residual deficits; Z79.899 Other long term (current) drug therapy; Z96.653 Presence of artificial knee joint, bilateral; I48.92 Unspecified atrial flutter; S09.90XA Unspecified injury of head, initial encounter; S01.112A Laceration without foreign body of left eyelid and periocular area, initial encounter; M79.81 Nontraumatic hematoma of soft tissue; W01.10XA Fall on same level from slipping, tripping and stumbling with subsequent striking against unspecified object, initial encounter; Y93.89 Activity, other specified; Y92.129 Unspecified place in nursing home as the place of occurrence of the external cause
CPT/HCPCS: 12013; 36415; 70450; 80048; 82553; 83874; 84484; 85007; 85027; 93005; 99284-25; A9270-GY; G0378; J2001

== ENCOUNTER 2019-08-21 15:05 | Emergency (ER) | payer MEDICARE, BC ==
[2019-08-21] MEDS ORDERED: Lidocaine 1% with EPINEPHrine 1:100,000 20 ML MDV INJECT ONE ×2 (16:03→16:27)
--- NOTE | 2019-08-21 16:03 | EDM.PDOC ---
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 states he was in the kitchen at home and got his walker hung up on the cabinet causing him to loose his balance and fall forward. Pt with a 5cm laceration to right side of his forehead. Pt without loss of consciousness. Pt able to move all his extremities without difficulty. Pt alert and appropriate. GCS-14. Onset: Today Location: Reports: Head Quality: Reports: Ache Severity: Mild Improves with: Reports: None Worsens with: Reports: None Associated Symptoms: Reports: No Other Symptoms Treatments PIGMENT MIXER: Reports: Dressing(s) Right Forehead Pain Score (Numeric/FACES): 4 - Related Data Allergies Allergy/AdvReac Type Severity Reaction Status Date / Time diphenhydramine Allergy Rash Verified 08/21/19 15:30 [From Andreal] Home Meds: Home Meds Simvastatin [Zocor] 20 mg PO BEDTIME 01/27/18 [History] Rivaroxaban [Xarelto] 20 mg PO DAILY #18 tablet 01/29/18 [Rx] Menthol/Camphor [Sarna Anti-Itch Lotion] 1 ml TP QID PRN 08/04/19 [History] Diltiazem IR [Cardizem] 30 mg PO Q8HR #90 tablet 08/05/19 [Rx] Metoprolol Tartrate [Lopressor] 25 mg PO TID #90 tablet 08/05/19 [Rx] Amiodarone [Cordarone] 200 mg PO DAILY 08/21/19 [History] Past Medical History HEENT History: Reports: Impaired Vision Cardiovascular History: Reports: Afib, High Cholesterol, Hypertension Respiratory History: Reports: SOB Gastrointestinal History: Reports: None Genitourinary History: Reports: Other (See Below) Other Genitourinary History: Dysuria Musculoskeletal History: Reports: Arthritis, Osteoarthritis Neurological History: Reports: CVA, Speech Problems, Other (See Below) Other Neuro History: Expressive Aphasia Psychiatric History: Reports: None Endocrine/Metabolic History: Reports: None Dermatologic History: Reports: Other (See Below) Other Dermatologic History: Cellulitis to Rt Leg - Infectious Disease History Infectious Disease History: Reports: Measles - Past Surgical History HEENT Surgical History: Reports: Other (See Below) Other HEENT Surgeries/Procedures: Dysphagia Cardiovascular Surgical History: Reports: Carotid Endarterectomy Respiratory Surgical History: Reports: None GI Surgical History: Reports: None Endocrine Surgical History: Reports: None Neurological Surgical History: Reports: Lumbar Spine Musculoskeletal Surgical History: Reports: Knee Replacement Other Musculoskeletal Surgeries/Procedures:: Jared knee Dermatological Surgical History: Reports: None Social & Family History - Family History Family Medical History: Noncontributory - Tobacco Use Smoking Status *Q: Former Smoker Used Tobacco, but Quit: Yes Month/Year Tobacco Last Used: quit 1969 Second Hand Smoke Exposure: No - Caffeine Use Caffeine Use: Reports: Coffee, Soda, Tea Caffeine Use Comment: 2 cups in the morning - Recreational Drug Use Recreational Drug Use: No ED ROS GENERAL - Review of Systems Review Of Systems: See Below Constitutional: Reports: No Symptoms HEENT: Reports: No Symptoms Respiratory: Reports: No Symptoms Cardiovascular: Reports: No Symptoms Endocrine: Reports: No Symptoms GI/Abdominal: Reports: No Symptoms : Reports: No Symptoms Musculoskeletal: Reports: No Symptoms Skin: Reports: Wound (5cm laceration to right side of forehead. ) Neurological: Reports: No Symptoms Psychiatric: Reports: No Symptoms Hematologic/Lymphatic: Reports: No Symptoms Immunologic: Reports: No Symptoms ED EXAM, GENERAL - Physical Exam Exam: See Below Exam Limited By: Other (expressive aphasia) General Appearance: Alert, WD/WN, No Apparent Distress Eye Exam: Bilateral Eye: PERRL Throat/Mouth: Normal Inspection, Normal Lips, Normal Teeth, Normal Gums, Normal Oropharynx, Normal Voice, No Airway Compromise Head: Normocephalic, Facial Swelling. No: Facial Tenderness, Sinus Tenderness Neck: Normal Inspection, Supple, Non-Tender, Full Range of Motion Respiratory/Chest: No Respiratory Distress, Lungs Clear, Normal Breath Sounds, No Accessory Muscle Use, Chest Non-Tender Cardiovascular: Normal Peripheral Pulses, Regular Rate, Rhythm, No Edema, No Gallop, No JVD, No Murmur, No Rub GI/Abdominal: Normal Bowel Sounds, Soft, Non-Tender, No Organomegaly, No Distention, No Abnormal Bruit, No Mass Back Exam: Normal Inspection, Full Range of Motion, NT Extremities: Normal Inspection, Normal Range of Motion, Non-Tender, Normal Capillary Refill, No Pedal Edema Neurological: Alert, CN II-XII Intact, Normal Cognition, Normal Gait, Normal Reflexes, No Motor/Sensory Deficits Psychiatric: Normal Affect, Normal Mood Skin Exam: Warm, Dry, Intact, Normal Color, No Rash Lymphatic: No Adenopathy ED GENERAL MEDICAL PROCEDURES - Laceration/Wound Repair Right Forehead Lac/wound length in cm: 5 Appearance: Superficial Distal NVT: Neuro & Vascular Intact Local Anesthesia - Lidocaine (Xylocaine): 1% with EPI Local Anesthetic Volume: 5cc Skin Prep: Chlorhexidine (Hibiciens), Saline Exploration/Debridement/Repair: Wound Explored, In a Bloodless Field Closed with: Sutures Suture Size: 5-0 # of Sutures: 6 Suture Type: Interrupted, Simple Sterile Dressing Applied: Provider Tetanus Status Addressed: Yes Complications: No Course - Vital Signs Last Recorded V/S: Last Vital Signs Temp 35.9 C 08/21/19 15:19 Pulse 47 L 08/21/19 15:19 Resp 20 08/21/19 15:19 BP 139/69 08/21/19 15:19 Pulse Ox 96 08/21/19 15:19 - Orders/Labs/Meds Orders: Active Orders 24 hr Category Date Time Status Cervical Spine wo Cont [CT] Stat Exams 08/21/19 15:33 Ordered Head wo Cont [CT] Stat Exams 08/21/19 15:33 Ordered - Radiology Interpretation Free Text/Narrative:: CT Head-NAD CT neck- DJD Departure - Departure Time of Disposition: 16:29 Disposition: Home, Self-Care 01 Condition: Good Clinical Impression: Minor head injury without loss of consciousness Qualifiers: Encounter type: initial encounter Qualified Code(s): S09.90XA - Unspecified injury of head, initial encounter Facial laceration Qualifiers: Encounter type: initial encounter Qualified Code(s): S01.81XA - Laceration without foreign body of other part of head, initial encounter Fall Qualifiers: Encounter type: initial encounter Qualified Code(s): W19.XXXA - Unspecified fall, initial encounter - Discharge Information Instructions: Facial Laceration, [id number], Head Injury, Adult, [id number] , Fall Prevention in Hospitals, Adult Referrals: Fay Duran PA-C [Primary Care Provider] - Additional Instructions: 1. discharge home 2. head injury precautions given 3. wound care instructions given 4. suture removal 7 days 5. follow up with PCP for further evaluation and treatment 6. return to ER for worsening symptoms Sepsis Event Note - Evaluation Sepsis Screening Result: No Definite Risk - Focused Exam Vital Signs: Vital Signs Temp Pulse Resp BP Pulse Ox 08/21/19 15:19 35.9 C 47 L 20 139/69 96 Date Exam was Performed: 08/21/19 Time Exam was Performed: 15:53 - My Orders Last 24 Hours: My Active Orders 08/21/19 15:33 Cervical Spine wo Cont [CT] Stat Head wo Cont [CT] Stat - Assessment/Plan Last 24 Hours: My Active Orders 08/21/19 15:33 Cervical Spine wo Cont [CT] Stat Head wo Cont [CT] Stat Assessment:: 1. 5cm laceration to forehead 2. fall 3. minor head injury without LOC Plan: 1. discharge home 2. head injury precautions given 3. wound care instructions given 4. suture removal 7 days 5. follow up with PCP for further evaluation and treatment 6. return to ER for worsening symptoms
[2019-08-21] MEDS ORDERED: Lidocaine 1% with EPINEPHrine 1:100,000 20 ML MDV ONE (16:05)
--- NOTE | 2019-08-21 16:21 | CT ---
[id number] CT/CT Head WO IV EXAM: CT Head WO IV CLINICAL DATA: FALL,PAIN. COMPARISON STUDY: 08/04/2019. FINDINGS: No intracranial hemorrhage, extra-axial fluid collection, mass, or acute ischemia. Generalized parenchymal atrophy with scattered areas of nonspecific white matter disease, commonly seen as sequela of chronic microvascular ischemia. Right frontal scalp hematoma without underlying calvarial fracture. Paranasal sinuses and mastoid air cells are clear. IMPRESSION: No acute intracranial findings. Ke Jin DO 08/21/19 0503 Thank you for allowing us to participate in the care of your patient.
--- NOTE | 2019-08-21 16:27 | CT ---
[id number] CT/CT Cervical Spine WO IV EXAM: NONCONTRAST CERVICAL SPINE CT INDICATION: Fall with pain. COMPARISON: None. DISCUSSION: 3 mm degenerative spondylolisthesis C5-C6. The vertebral bodies are otherwise normal in height and alignment. No fracture or suspicious osseous lesion is identified. Moderate degenerative disc disease C5-C6 and C6-C7 with milder changes at the remaining disc levels. Moderate to advanced facet arthropathy throughout the cervical spine. IMPRESSION: 1. No evidence of acute cervical spine fracture. Cristofer Deleon MD 08/21/19 1822 Thank you for allowing us to participate in the care of your patient.
[2019-08-21] MEDS ORDERED: Diphtheria,Pertussis(Acell),Tetanus Vaccine 0.5 ML SDV IM ONE (16:34)
== END 2019-08-21 16:50 | disposition home or self-care (01) ==
LOC: KA.ED 15:05
DX: S01.81XA Laceration without foreign body of other part of head, initial encounter (principal); S09.90XA Unspecified injury of head, initial encounter; R40.2412 Glasgow coma scale score 13-15, at arrival to emergency department; I10 Essential (primary) hypertension; E78.00 Pure hypercholesterolemia, unspecified; I48.91 Unspecified atrial fibrillation; Z79.01 Long term (current) use of anticoagulants; Z79.899 Other long term (current) drug therapy; Z86.73 Personal history of transient ischemic attack (TIA), and cerebral infarction without residual deficits; Z87.891 Personal history of nicotine dependence; Z88.8 Allergy status to other drugs, medicaments and biological substances; W19.XXXA Unspecified fall, initial encounter; Y93.89 Activity, other specified; Y92.000 Kitchen of unspecified non-institutional (private) residence as the place of occurrence of the external cause
CPT/HCPCS: 12013; 70450; 72125; 90471; 90715; 99283; 99283-25

== ENCOUNTER 2019-11-06 15:06 | Inpatient (IN) | payer MEDICARE, BC ==
[2019-11-06] MEDS ORDERED: Sodium Chloride 0.9% 1,000 ML IV ONE (15:21)
--- NOTE | 2019-11-06 15:45 | EDM.PDOC ---
ED HPI GENERAL MEDICAL PROBLEM - General Chief Complaint: General Stated Complaint: Syncope Time Seen by Provider: 11/06/19 15:36 Source of Information: Reports: Patient, Family () History Limitations: Reports: No Limitations - History of Present Illness INITIAL COMMENTS - FREE TEXT/NARRATIVE: Patient is an 84-year-old gentleman who presents to the emergency department via EMS for complaint of syncopal episode. His states at approximately 1230 this afternoon, while sitting at the kitchen table, patient became stiff and started leaning to the right side. was able to hold him upright and he did not fall to the floor. She states that he was unresponsive and stiff. Patient does have a history of CVA, has dysphagia, but is alert and oriented at this time. states upon presentation to the ER that he is at his baseline and normal for him. Patient did present bradycardic with heart rate in the 40s and 50s. Patient is currently on Xarelto. Patient currently takes metoprolol, amiodarone, and diltiazem for history of atrial fibrillation. Patient denies chest pain, shortness of breath, headache, fever, blurry vision, nausea, vomiting, diarrhea, out of area travel, dysuria, or uncommon bleeding. Patient is DNR status documents available. Onset: Today Onset Time: 12:45 Duration: Minutes: Location: Reports: Other (No injury) Severity: Mild Improves with: Reports: Other (Spontaneously) Worsens with: Reports: None Context: Reports: Other (While seated) Associated Symptoms: Reports: Syncope. Denies: Chest Pain, Cough, Diaphoresis, Fever/Chills, Headaches, Nausea/Vomiting, Rash Treatments TROUSSEAU CONSULTANT: Reports: Oxygen - Related Data Allergies Allergy/AdvReac Type Severity Reaction Status Date / Time diphenhydramine Allergy Rash Verified 11/06/19 15:31 [From Benadryl] Home Meds: Home Meds Simvastatin [Zocor] 20 mg PO BEDTIME 01/27/18 [History] Rivaroxaban [Xarelto] 20 mg PO DAILY #18 tablet 01/29/18 [Rx] Amiodarone [Cordarone] 200 mg PO DAILY 08/21/19 [History] Diltiazem IR [Cardizem] 30 mg PO BID@0800,1400 11/06/19 [History] Metoprolol Tartrate [Lopressor] 25 mg PO BID 11/06/19 [History] Past Medical History HEENT History: Reports: Impaired Vision Cardiovascular History: Reports: Afib, High Cholesterol, Hypertension Respiratory History: Reports: SOB Gastrointestinal History: Reports: None Genitourinary History: Reports: Other (See Below) Other Genitourinary History: Dysuria Musculoskeletal History: Reports: Arthritis, Osteoarthritis Neurological History: Reports: CVA, Speech Problems, Other (See Below) Other Neuro History: Expressive Aphasia Psychiatric History: Reports: None Endocrine/Metabolic History: Reports: None Dermatologic History: Reports: Other (See Below) Other Dermatologic History: Cellulitis to Rt Leg - Infectious Disease History Infectious Disease History: Reports: Measles - Past Surgical History HEENT Surgical History: Reports: Other (See Below) Other HEENT Surgeries/Procedures: Dysphagia Cardiovascular Surgical History: Reports: Carotid Endarterectomy Respiratory Surgical History: Reports: None GI Surgical History: Reports: None Endocrine Surgical History: Reports: None Neurological Surgical History: Reports: Lumbar Spine Musculoskeletal Surgical History: Reports: Knee Replacement Other Musculoskeletal Surgeries/Procedures:: Jared knee Dermatological Surgical History: Reports: None Social & Family History - Family History Family Medical History: Noncontributory - Caffeine Use Caffeine Use: Reports: Coffee, Soda, Tea Caffeine Use Comment: 2 cups in the morning ED ROS GENERAL - Review of Systems Review Of Systems: Comprehensive ROS is negative, except as noted in HPI. Constitutional: Reports: No Symptoms HEENT: Reports: No Symptoms Respiratory: Reports: No Symptoms Cardiovascular: Reports: No Symptoms Endocrine: Reports: No Symptoms GI/Abdominal: Reports: No Symptoms : Reports: No Symptoms Musculoskeletal: Reports: No Symptoms Skin: Reports: No Symptoms Neurological: Reports: Pre-Existing Deficit, Syncope, Trouble Speaking (At baseline). Denies: Change in Speech Psychiatric: Reports: No Symptoms Hematologic/Lymphatic: Reports: No Symptoms Immunologic: Reports: No Symptoms ED EXAM, GENERAL - Physical Exam Exam: See Below Exam Limited By: No Limitations General Appearance: Alert, WD/WN, No Apparent Distress Eye Exam: Bilateral Eye: Normal Inspection Ears: Normal External Exam, Normal Canal, Normal TMs Nose: Normal Inspection, Normal Mucosa, No Blood Throat/Mouth: Normal Inspection, Normal Oropharynx, No Airway Compromise Head: Atraumatic, Normocephalic Neck: Normal Inspection, Supple, Non-Tender, Full Range of Motion Respiratory/Chest: No Respiratory Distress, Lungs Clear, Normal Breath Sounds, No Accessory Muscle Use, Chest Non-Tender Cardiovascular: Normal Peripheral Pulses, No Murmur, Bradycardia GI/Abdominal: Normal Bowel Sounds, Soft, Non-Tender, No Organomegaly, No Distention, No Abnormal Bruit, No Mass Back Exam: Normal Inspection. No: CVA Tenderness (L), CVA Tenderness (R) Extremities: Normal Inspection, No Pedal Edema Neurological: Alert, Oriented, Normal Cognition, Other (Patient has recovered to his baseline per . Alert, awake, oriented 3) Psychiatric: Normal Affect, Normal Mood Skin Exam: Warm, Dry, Intact, Normal Color, No Rash EKG INTERPRETATION EKG Date: 11/06/19 Time: 15:30 Rhythm: Other (Sinus bradycardia) Rate (Beats/Min): 41 [place]: Normal P-Wave: Present QRS: Normal ST-T: Normal QT: Normal Comparison: Change From Previous EKG Course - Vital Signs Last Recorded V/S: Last Vital Signs Temp 97.0 F 11/06/19 15:24 Pulse 39 L 11/06/19 15:24 Resp 11 L 11/06/19 15:24 BP 103/34 L 11/06/19 15:24 Pulse Ox 98 11/06/19 15:24 - Orders/Labs/Meds Orders: Active Orders 24 hr Category Date Time Status EKG Documentation Completion [RC] ASDIRECTED Care 11/06/19 15:22 Active EKG 12 Lead [EK] Routine Ther 11/06/19 15:21 Ordered Labs: Laboratory Tests 11/06/19 11/06/19 Range/Units 15:35 15:35 WBC 5.06 (5.00-10.00) 10^3/uL RBC 4.57 (4.50-6.00) 10^6/uL Hgb 13.4 D (13.0-17.0) g/dL Hct 42.4 (40.0-52.0) % MCV 92.8 H (82.0-92.0) fL MCH 29.3 (27.0-31.0) pg MCHC 31.6 L (32.0-36.0) g/dL RDW 16.3 H (11.5-14.5) % Plt Count 171 D (150-400) 10^3/uL MPV 9.8 (7.4-10.4) fL Immature Gran % (Auto) 0.2 (0.0-5.0) % Neut % (Auto) 67.3 (50.0-70.0) % Lymph % (Auto) 19.0 L (20.0-40.0) % [place] % (Auto) 10.3 H (2.0-8.0) % Eos % (Auto) 2.6 (1.0-3.0) % Baso % (Auto) 0.6 (0.0-1.0) % Immature Gran # (Auto) 0.01 (0.00-0.50) 10^3/uL Neut # (Auto) 3.41 (2.50-7.00) 10^3/uL Lymph # (Auto) 0.96 L (1.00-4.00) 10^3/uL [place] # (Auto) 0.52 (0.10-0.80) 10^3/uL Eos # (Auto) 0.13 (0.10-0.30) 10^3/uL Baso # (Auto) 0.03 (0.00-0.10) 10^3/uL Sodium 143 (136-145) mmol/L Potassium 4.3 (3.3-5.3) mmol/L Chloride 104 (98-115) mmol/L Carbon Dioxide 29.4 (21.0-32.0) mmol/L Anion Gap 13.9 (5-15) mmol/L BUN 28 H (6-25) mg/dL Creatinine 1.36 H (0.51-1.17) mg/dL Est Cr Clr Drug Dosing 41.64 mL/min Estimated GFR (MDRD) 50 mL/min Glucose 105 H (75 - 99) mg/dL Calcium 8.5 L (8.7-10.3) mg/dL Total Bilirubin 0.3 (0.2-1.0) mg/dL AST 7 L (15-37) U/L ALT 8 L (12-78) U/L Alkaline Phosphatase 92 (46-116) IU/L Troponin I 0.05 (0.00-0.070) ng/mL Total Protein 2.3 L (6.4-8.2) g/dL Albumin 3.29 (3.00-4.80) g/dL Meds: Medications Discontinued Medications Generic Name Dose Route Start Last Admin Trade Name Dory PRN Reason Stop Dose Admin Sodium Chloride 1,000 mls @ 999 mls/hr 11/06/19 15:21 11/06/19 16:10 Normal Saline IV 11/06/19 16:21 999 mls/hr .BOLUS ONE Administration - Radiology Interpretation Free Text/Narrative:: Chest x-ray shows no acute cardiopulmonary process CT head without contrast shows no acute intracranial process. - Re-Assessments/Exams Free Text/Narrative Re-Assessment/Exam: 11/06/19 16:49 Patient afebrile, vital signs stable, heart rate mid 40s. Discussed case with Dr. Theresa duran. Patient will be admitted inpatient and followed by her. Departure - Departure Time of Disposition: 16:50 Disposition: Admitted As Inpatient 68 Condition: Fair Clinical Impression: Bradycardia, Syncope, cardiogenic - Discharge Information Referrals: Fay Duran PA-C [Primary Care Provider] - Forms: ED Department Discharge Sepsis Event Note - Evaluation Sepsis Screening Result: No Definite Risk - Focused Exam Vital Signs: Vital Signs Temp Pulse Resp BP Pulse Ox 11/06/19 15:24 97.0 F 39 L 11 L 103/34 L 98 Date Exam was Performed: 11/06/19 Time Exam was Performed: 16:50 - My Orders Last 24 Hours: My Active Orders 11/06/19 15:21 EKG 12 Lead [EK] Routine 11/06/19 15:22 EKG Documentation Completion [RC] ASDIRECTED - Assessment/Plan Last 24 Hours: My Active Orders 11/06/19 15:21 EKG 12 Lead [EK] Routine 11/06/19 15:22 EKG Documentation Completion [RC] ASDIRECTED Assessment:: Bradycardia Plan: Admit inpatient to [place]
[2019-11-06 16:13] LABS: ANION GAP 13.9 mmol/L (5-15)
--- NOTE | 2019-11-06 16:19 | CR ---
[id number] RAD/RAD Chest PA or AP 1V EXAM: FRONTAL CHEST INDICATION: SYNCOPE. COMPARISON: August 04, 2012. DISCUSSION: Hyperinflation suggests underlying chronic obstructive pulmonary disease. No acute infiltrates are identified. Normal heart size. IMPRESSION: 1. No acute findings. Cristfoer Deleon MD 11/06/19 [id number] Thank you for allowing us to participate in the care of your patient.
--- NOTE | 2019-11-06 16:22 | CT ---
[id number] CT/CT Head WO IV EXAM: NONCONTRAST HEAD CT INDICATION: SYNCOPE. COMPARISON: August 21, 2019. DISCUSSION: Stable mild to moderate generalized atrophy. Stable mild to moderate chronic small vessel ischemic changes and bilateral basal ganglia calcifications. No mass effect or midline shift. No acute hemorrhage or extra-axial fluid collection. No acute territorial infarct is identified. A limited look at the orbits and paranasal sinuses is unremarkable. IMPRESSION: 1. No acute findings. Cristofer Deleon MD 11/06/19 1196 Thank you for allowing us to participate in the care of your patient.
[2019-11-06] MEDS: Simvastatin 20 MG Tab PO SCH (21:19)
[2019-11-07] MEDS ORDERED: Atropine 0.1 MG/ML 10 ML Syringe IVPUSH PRN (06:39)
[2019-11-07] MEDS ORDERED: Nitroglycerin 0.4 MG Tab.SL SL PRN (06:39)
[2019-11-07] MEDS ORDERED: Lidocaine 2% 100 MG/5 ML Syringe IVPUSH PRN (06:39)
[2019-11-07] MEDS ORDERED: EPINEPHrine 1:10,000 1 MG/10 ML Syringe IVPUSH PRN (06:39)
[2019-11-07 07:35] LABS: ANION GAP 8.7 mmol/L (5-15); CHLORIDE,CL 107 mmol/L (98-115); SODIUM,NA 139 mmol/L (136-145)
[2019-11-07] MEDS: Rivaroxaban 10 MG Tab PO SCH (08:25)
[2019-11-07] MEDS ORDERED: Amiodarone 200 MG Tab PO SCH (09:00)
--- NOTE | 2019-11-07 09:21 | PCM.HP.2 ---
H&P History of Present Illness - General Date of Service: 11/07/19 Admit Problem/Dx: Admission Diagnosis/Problem Admission Diagnosis/Problem Bradycardia with 41 - 50 beats per minute Source of Information: Old Records, Provider, RN History Limitations: Reports: Altered Mental Status - Related Data Allergies/Adverse Reactions: Allergies Allergy/AdvReac Type Severity Reaction Status Date / Time diphenhydramine Allergy Rash Verified 11/06/19 15:31 [From Benadryl] Home Medications: Home Meds Simvastatin [Zocor] 20 mg PO BEDTIME 01/27/18 [History] Rivaroxaban [Xarelto] 20 mg PO DAILY #18 tablet 01/29/18 [Rx] Amiodarone [Cordarone] 200 mg PO DAILY 08/21/19 [History] Diltiazem IR [Cardizem] 30 mg PO BID 11/06/19 [History] Metoprolol Tartrate [Lopressor] 25 mg PO BID 11/06/19 [History] Past Medical History HEENT History: Reports: Impaired Vision Cardiovascular History: Reports: Afib, High Cholesterol, Hypertension Respiratory History: Reports: SOB Gastrointestinal History: Reports: None Genitourinary History: Reports: Other (See Below) Other Genitourinary History: Dysuria Musculoskeletal History: Reports: Arthritis, Osteoarthritis Neurological History: Reports: CVA, Speech Problems, Other (See Below) Other Neuro History: Expressive Aphasia Psychiatric History: Reports: None Endocrine/Metabolic History: Reports: None Dermatologic History: Reports: Other (See Below) Other Dermatologic History: Cellulitis to Rt Leg - Infectious Disease History Infectious Disease History: Reports: Measles - Past Surgical History HEENT Surgical History: Reports: Other (See Below) Other HEENT Surgeries/Procedures: Dysphagia Cardiovascular Surgical History: Reports: Carotid Endarterectomy Respiratory Surgical History: Reports: None GI Surgical History: Reports: None Endocrine Surgical History: Reports: None Neurological Surgical History: Reports: Lumbar Spine Musculoskeletal Surgical History: Reports: Knee Replacement Other Musculoskeletal Surgeries/Procedures:: Jared knee Dermatological Surgical History: Reports: None Social & Family History - Family History Family Medical History: Noncontributory - Tobacco Use Smoking Status *Q: Former Smoker Used Tobacco, but Quit: Yes Month/Year Tobacco Last Used: quit 1970 - Caffeine Use Caffeine Use: Reports: Coffee, Soda, Tea Caffeine Use Comment: 2 cups in the morning - Recreational Drug Use Recreational Drug Use: No H&P Review of Systems - Review of Systems: Review Of Systems: See Below Reason Not Obtained: Although patient alert, communication is limited to nodding General: Denies: Fever, Malaise, Weakness, Fatigue, Decreased Appetite HEENT: Reports: No Symptoms Pulmonary: Denies: Shortness of Breath, Cough, Sputum Cardiovascular: Denies: Chest Pain, Palpitations, Blood Pressure Problem Gastrointestinal: Denies: Abdominal Pain, Anorexia, Constipation, Diarrhea, Decreased Appetite Genitourinary: Denies: Dysuria, Frequency, Burning Skin: Reports: Wound (right elbow, POA, skin tear) Psychiatric: Denies: Confusion, Anxiety, Agitation Neurological: Reports: Difficulty Walking, Gait Disturbance (uses home 4- wheeled walker). Denies: Confusion Hematologic/Lymphatic: Reports: Easy Bruising Immunologic: Reports: No Symptoms Exam - Exam Exam: See Below - Vital Signs Vital Signs: Last Vital Signs Temp 97.5 F 11/07/19 06:03 Pulse 47 L 11/07/19 06:03 Resp 18 11/07/19 06:03 BP 158/75 H 11/07/19 06:03 Pulse Ox 97 11/07/19 07:45 Weight: 151 lb - Exam Quality Assessment: No: Supplemental Oxygen General: Alert, Oriented, Cooperative, Mild Distress Neck: Supple Lungs: Clear to Auscultation, Normal Respiratory Effort, Rhonchi. No: Crackles , Rales Cardiovascular: Regular Rhythm, Bradycardia. No: Diastolic Murmur GI/Abdominal Exam: Normal Bowel Sounds, Soft (Male) Exam: Deferred Rectal (Males) Exam: Deferred Back Exam: No: CVA Tenderness (L), CVA Tenderness (R) Extremities: No Pedal Edema. No: Slow Capillary Refill Peripheral Pulses: 2+: Radial (L), Femoral (L) Skin: Wound (Skin tear right elbow healing, POA, ) Neurological: Cranial Nerves Intact Neuro Extensive - Mental Status: Alert, Normal Cognition Neuro Extensive - Motor, Sensory, Reflexes: CN II-XII Intact Psychiatric: Alert, Labile Mood, Depressed - Patient Data Lab Results Last 24 hrs: Laboratory Results - last 24 hr 11/06/19 11/06/19 11/07/19 Range/Units 15:35 15:35 06:55 WBC 5.06 (5.00-10.00) 10^3/uL RBC 4.57 (4.50-6.00) 10^6/uL Hgb 13.4 D (13.0-17.0) g/dL Hct 42.4 (40.0-52.0) % MCV 92.8 H (82.0-92.0) fL MCH 29.3 (27.0-31.0) pg MCHC 31.6 L (32.0-36.0) g/dL RDW 16.3 H (11.5-14.5) % Plt Count 171 D (150-400) 10^3/uL MPV 9.8 (7.4-10.4) fL Immature Gran % (Auto) 0.2 (0.0-5.0) % Neut % (Auto) 67.3 (50.0-70.0) % Lymph % (Auto) 19.0 L (20.0-40.0) % [place] % (Auto) 10.3 H (2.0-8.0) % Eos % (Auto) 2.6 (1.0-3.0) % Baso % (Auto) 0.6 (0.0-1.0) % Immature Gran # (Auto) 0.01 (0.00-0.50) 10^3/uL Neut # (Auto) 3.41 (2.50-7.00) 10^3/uL Lymph # (Auto) 0.96 L (1.00-4.00) 10^3/uL [place] # (Auto) 0.52 (0.10-0.80) 10^3/uL Eos # (Auto) 0.13 (0.10-0.30) 10^3/uL Baso # (Auto) 0.03 (0.00-0.10) 10^3/uL Sodium 143 139 (136-145) mmol/L Potassium 4.3 4.2 (3.3-5.3) mmol/L Chloride 104 107 (98-115) mmol/L Carbon Dioxide 29.4 27.5 (21.0-32.0) mmol/L Anion Gap 13.9 8.7 (5-15) mmol/L BUN 28 H 21 (6-25) mg/dL Creatinine 1.36 H 1.00 (0.51-1.17) mg/dL Est Cr Clr Drug Dosing 41.64 55.10 mL/min Estimated GFR (MDRD) 50 > 60 mL/min Glucose 105 H 87 (75 - 99) mg/dL Calcium 8.5 L 8.7 (8.7-10.3) mg/dL Total Bilirubin 0.3 (0.2-1.0) mg/dL AST 7 L (15-37) U/L ALT 8 L (12-78) U/L Alkaline Phosphatase 92 (46-116) IU/L Troponin I 0.05 (0.00-0.070) ng/mL Total Protein 2.3 L (6.4-8.2) g/dL Albumin 3.29 (3.00-4.80) g/dL TSH, Ultra Sensitive 7.240 H (0.340-4.820) uIU/mL Result Diagrams: 11/06/19 15:35 11/07/19 06:55 Sepsis Event Note - Evaluation Sepsis Screening Result: No Definite Risk - Focused Exam Vital Signs: Vital Signs Temp Pulse Resp BP Pulse Ox Pulse Ox 11/07/19 07:45 97 11/07/19 06:03 97.5 F 47 L 18 158/75 H 97 11/07/19 03:00 97.5 F 49 L 18 157/66 H 97 11/06/19 23:00 97.1 F 46 L 18 160/64 H 97 Date Exam was Performed: 11/07/19 Time Exam was Performed: 13:09 Problem List Initiated/Reviewed/Updated: Yes Orders Last 24hrs: Active Orders 24 hr Category Date Time Status Patient Status [ADT] Routine ADT 11/06/19 16:51 Active EKG Documentation Completion [RC] ASDIRECTED Care 11/06/19 15:22 Active Oxygen Therapy [RC] PRN Care 11/06/19 16:51 Active Telemetry Monitoring [Cardiac Monitoring] [RC] 0300, Care 11/06/19 17:33 Active 0700,1100,1500,1900,2300 Up With Assistance [RC] ASDIRECTED Care 11/06/19 17:30 Active VTE/DVT Education [RC] PER UNIT ROUTINE Care 11/06/19 16:51 Active Vital Signs [RC] 0300,0700,1100,1500,1900,2300 Care 11/06/19 16:51 Active Consult to Physical Therapy [PT Evaluation and Cons 11/06/19 17:40 Active Treatment] [CONS] Routine Heart Healthy Diet [DIET] Diet 11/07/19 Breakfast Active Amiodarone [Cordarone] Med 11/07/19 09:00 Active 200 mg PO DAILY Atropine [Atropine 0.1 MG/ML] Med 11/07/19 06:39 Active See Dose Instructions IVPUSH ASDIRECTED PRN EPINEPHrine [EPINEPHrine 1:10,000] Med 11/07/19 06:39 Active 1 mg IVPUSH ASDIRECTED PRN Lidocaine 2% [Xylocaine 2%] Med 11/07/19 06:39 Active See Dose Instructions IVPUSH ASDIRECTED PRN Nitroglycerin [Nitrostat] Med 11/07/19 06:39 Active 0.4 mg SL ASDIRECTED PRN Rivaroxaban [Xarelto] Med 11/07/19 09:00 Active 20 mg PO DAILY Simvastatin [Zocor] Med 11/06/19 21:00 Active 20 mg PO BEDTIME Resuscitation Status Routine Resus Stat 11/06/19 16:51 Ordered Medication Orders Amiodarone HCl (Cordarone) 200 mg PO DAILY [facility] Last Admin: 11/07/19 08:25 Dose: 200 mg Atropine Sulfate (Atropine 0.1 Mg/Ml) 0 mg IVPUSH ASDIRECTED PRN PRN Reason: Heart. Epinephrine HCl (Epinephrine 1:10,000) 1 mg IVPUSH ASDIRECTED PRN PRN Reason: Heart. Lidocaine HCl (Xylocaine 2%) 0 mg IVPUSH ASDIRECTED PRN PRN Reason: Heart. Nitroglycerin (Nitrostat) 0.4 mg SL ASDIRECTED PRN PRN Reason: Heart. Rivaroxaban (Xarelto) 20 mg PO DAILY [facility] Last Admin: 11/07/19 08:25 Dose: 20 mg Simvastatin (Zocor) 20 mg PO BEDTIME [facility] Last Admin: 11/06/19 21:19 Dose: 20 mg Assessment/Plan Comment:: History of present illness Mr. Trejo is a frail 84-year-old gentleman who was admitted on 11/05 inpatient status through the ED when he came in via ambulance with a syncope episode, found to be markedly bradycardic. He was accompanied by his spouse who gave history of patient having unresponsive episode in she noticed patient to have a rigid posture and leaning toward his right side while at the kitchen table. Spouse was able to keep patient upright thus preventing a fall. Over the course of 1-2 hours she notified ambulance thus transporting to [facility]. Pertinent medical history includes long-standing paroxysmal atrial fibrillation on factor Xa inhibitor along with metoprolol, diltiazem, amiodarone. 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 [facility] br[facility] in which his metoprolol was decreased from 25 mg TID to BID, his Cardizem was decreased from 30 mg TID to BID Pertinent ED findings/work-up Spouse denotes back to mental baseline. HR 40-50's BP 103/34, afebrile Sodium potassium normal BUN 28 creatinine 1.36 EKG --Marked sinus bradycardia 41, QTc 460 CT Head --Acute findings however chronic small vessel ischemic changes with bilateral basal ganglia calcifications along with moderate atrophy Chest x-ray --No acute findings, however COPD findings Hospital course to date On admission calcium channel emily and metoprolol was held, continued with amiodarone. Reviewed telemetry trips overfnight--ongoing market sinus bradycardia in 40s however HR 50 upon standing and ambulatory in room. Denies chest pain or shortness of breath, TSH elevated. BUN/creatinine normal as fluids were given in the ED last night. Primary hospital problem --Drug-induced sinus bradycardia --Thyroid dysfunction, subclinical; TSH 7.2--likely drug-induced/amiodarone as he was euthyroid at baseline, assess T4 levels then add low dose supplement --Atrial fibrillation with hx flutter, paroxysmal, asymptomatic sinus bradycardia, [id number], 4, factor Xa inhibitor, audiogram June 2019 while in atrial fibrillation/flutter with EF 45% with LVH, mild left atrial dilatation, --Frailty with recent/recurrent falls, SS consult --High risk outpatinent med, amiodarone, LFTs 07/2019, within normal limits, sodium, potassium normal Chronic/stable problems --CKD, stage 2, baseline creat 0.8 --Dysphasia, 2/2 CVA; thickened liquids --Aphasia, communicates via writing --Hyperlipidemia, statin --Osteoarthritis Disposition/overall plan Remain inpatient today, telemetry Continue holding CCB and metoprolol Add low-dose levothyroxine Telemetry monitoring Social service consult for patient medication [facility] nurse set up as high risk medications Physical Therapy CS Discharge planning Anticipate discharged back to home tomorrow Likely will continue on amiodarone with lower dose of 100mg; however discontinue Cardizem and monitor HR/BP as he may need long-acting metoprolol in the future ambulation with walker today to assess burden/symptoms Physical Therapy CS, patient ongoing frequent falls Code status: DNR status, - Mortality Measure Prognosis:: Good
[2019-11-07] MEDS: Levothyroxine 25 MCG Tab PO SCH (10:32)
[2019-11-07] MEDS: Simvastatin 20 MG Tab PO SCH (22:01)
[2019-11-08] MEDS: Levothyroxine 25 MCG Tab PO SCH (07:35)
[2019-11-08] MEDS: Rivaroxaban 10 MG Tab PO SCH (08:28)
--- NOTE | 2019-11-08 09:14 | PCM.DCSUM1 ---
Discharge Summary - Hospital Course Diagnosis: Stroke: No - Discharge Data Discharge Date: 11/08/19 Discharge Disposition: Home, Self-Care 01 Condition: Fair - Referral to Home Health Primary Care Physician: Fay Duran PA-C - Patient Summary/Data Consults: Consultations 11/06/19 17:40 Consult to Physical Therapy [PT Evaluation and Treatment] [CONS] Routine 11/07/19 10:15 Consult to Case Management/Staff Services Manager [CONS] Routine PT Evaluation and Treatment [CONS] Routine - Patient Instructions Diet: Usual Diet as Tolerated Diet, Other: Honey thickened liquids Activity: As Tolerated Driving: Do Not Drive Showering/Bathing: May Shower Other/Special Instructions: Report any falls, lightheadedness, dizziness, passing out episodes. Report any heart rate over 90 or less than 50 - Discharge Plan *PRESCRIPTION DRUG MONITORING PROGRAM REVIEWED*: Not Applicable *COPY OF PRESCRIPTION DRUG MONITORING REPORT IN PATIENT GIA: Not Applicable Home Medications: Home Meds Simvastatin [Zocor] 20 mg PO BEDTIME 01/27/18 [History] Rivaroxaban [Xarelto] 20 mg PO DAILY #18 tablet 01/29/18 [Rx] Amiodarone [Cordarone] 100 mg PO DAILY #0 11/08/19 [Rx] Referrals: Fay Duran PA-C [Primary Care Provider] - (Preferably this Wednesday, telemedicine or verbal visit will be okay ONLY if spouse can provide heart rate. If spouse cannot give accurate HR then MUST be seen by somebody this wednesday. ) - Discharge Summary/Plan Comment DC Time >30 min.: Yes Discharge Summary/Plan Comment: Final diagnosis --Drug-induced sinus bradycardia --Thyroid dysfunction, subclinical; TSH 7.2--likely drug-induced/amiodarone as he was euthyroid at baseline, assess T4 levels, addded low dose supplement --Atrial fibrillation with hx flutter, paroxysmal, asymptomatic sinus bradycardia, [id number], 4, factor Xa inhibitor, audiogram June 2019 while in atrial fibrillation/flutter with EF 45% with LVH, mild left atrial dilatation, --Frailty with recent/recurrent falls, spouse refused PT and social service consultation for home health --High risk outpt med, amiodarone, LFTs 07/2019, within normal limits, sodium, potassium normal agatha DC Chronic/stable problems --CKD, stage 2, baseline creat 0.8 --Dysphasia, 2/2 CVA; thickened liquids --Aphasia, communicates via writing --Hyperlipidemia, statin --Osteoarthritis History summary Mr. Trejo is a frail 84-year-old gentleman who was admitted on 11/05 inpatient status through the ED when he came in via ambulance with a syncope episode, found to be markedly bradycardic. He was accompanied by his spouse who gave history of patient having unresponsive episode in which she noticed patient to have a rigid posture and leaning toward his right side while at the kitchen table. Spouse was able to keep patient upright thus preventing a fall. Over the course of 1-2 hours she notified ambulance thus transporting to [facility]. Pertinent medical history includes long-standing paroxysmal atrial fibrillation on factor Xa inhibitor along with metoprolol tartrate (TID?) diltiazem, amiodarone. He does have hx of multiple CVAs in the past with significant dysphasia and aphasia she communicates mainly through clipboard notes. [facility] marked sinus bradycardia in which his metoprolol was decreased from 25 mg TID to BID, his Cardizem was decreased from 30 mg TID to BID Pertinent ED findings/work-up Spouse denotes back to mental baseline. HR 40-50's BP 103/34, afebrile Sodium potassium normal BUN 28 creatinine 1.36 EKG --Marked sinus bradycardia 41, QTc 460 CT Head --Acute findings however chronic small vessel ischemic changes with bilateral basal ganglia calcifications along with moderate atrophy Chest x-ray --No acute findings, however COPD findings Hospital course On admission calcium channel emily and metoprolol was held, we continued with amiodarone however the morning of discharge he was reduced to 100 mg. He remained on telemetry heart rate improved to 55 on discharge with good blood pressure and MAPS of 70's. He had no shortness of breath or chest pain. Sodium and potassium remain within normal limits. He had a chest x-ray on admission showed some early COPD findings--what concerning as high risk amiodarone. LFTs were normal. He did have an elevated TSH subclinical ~7. T4 was pending on discharge she was started on low-dose levothyroxine 25 mcg as suspect amiodarone induced since he was euthyroid at baseline. Patient spouse refused PT evaluation and any efforts for home health therapy. Medication changes/adjustments upon discharge Levothyroxine, 25 mcg p.o. daily (newly added) Amiodarone 100 mg p.o. daily, (changed from 200 mg daily) Discontinued diltiazem HOLD metoprolol for now, likely will acquire restart if needed Disposition Patient will be discharged to home self-care in the company of his spouse Possible telemedicine or verbal visit for heart rate this Wednesday. If not patient will need to be evaluated this Wednesday - General Info Subjective Update: Uncommunicative other than writing on clipboard. Patient wrote he feels good, desires to go home, did not sleep well. Denies chest pain or shortness of breath Functional Status: Reports: Pain Controlled - Review of Systems General: Denies: Fever Pulmonary: Denies: Shortness of Breath, Cough Cardiovascular: Denies: Chest Pain - Patient Data Vitals - Most Recent: Last Vital Signs Temp 97.9 F 11/08/19 07:00 Pulse 52 L 11/08/19 07:00 Resp 20 11/08/19 07:00 BP 147/62 H 11/08/19 07:00 Pulse Ox 96 11/08/19 07:00 Weight - Most Recent: 151 lb I&O - Last 24 hours: Intake & Output 11/07/19 11/08/19 11/08/19 22:59 06:59 14:59 Intake Total 650 0 Balance 650 0 Med Orders - Current: Current Medications Atropine Sulfate (Atropine 0.1 Mg/Ml) 0 mg IVPUSH ASDIRECTED PRN PRN Reason: Heart. Epinephrine HCl (Epinephrine 1:10,000) 1 mg IVPUSH ASDIRECTED PRN PRN Reason: Heart. Levothyroxine Sodium (Levothyroxine) 25 mcg PO [facility] Last Admin: 11/08/19 07:35 Dose: 25 mcg Lidocaine HCl (Xylocaine 2%) 0 mg IVPUSH ASDIRECTED PRN PRN Reason: Heart. Nitroglycerin (Nitrostat) 0.4 mg SL ASDIRECTED PRN PRN Reason: Heart. Rivaroxaban (Xarelto) 20 mg PO DAILY [facility] Last Admin: 11/08/19 08:28 Dose: 20 mg Simvastatin (Zocor) 20 mg PO BEDTIME [facility] Last Admin: 11/07/19 22:01 Dose: 20 mg Discontinued Medications Amiodarone HCl (Cordarone) 200 mg PO DAILY [facility] Last Admin: 11/07/19 08:25 Dose: 200 mg Sodium Chloride (Normal Saline) 1,000 mls @ 999 mls/hr IV .BOLUS ONE Stop: 11/06/19 16:21 Last Admin: 11/06/19 16:10 Dose: 999 mls/hr - Exam Quality Assessment: Denies: Supplemental Oxygen General: Reports: Alert, Cooperative, No Acute Distress Lungs: Reports: Clear to Auscultation, Normal Respiratory Effort Cardiovascular: Reports: Bradycardia GI/Abdominal Exam: Normal Bowel Sounds, Soft, Non-Tender (Male) Exam: Deferred Rectal (Males) Exam: Deferred Back Exam: Denies: CVA Tenderness (L), CVA Tenderness (R) Extremities: No Pedal Edema Wound/Incisions: Reports: Dressing Dry and Intact (Right elbow) Psy/Mental Status: Reports: Alert. Denies: Anxious
== END 2019-11-08 13:25 | disposition home or self-care (01) | DRG 310 ==
LOC: KA.ED 15:06 → KA.MS 16:51
PROVIDERS: ADMIT Physician Assistant Surgical; ATTEND Family Medicine
DX: R55 Syncope and collapse (principal); R00.1 Bradycardia, unspecified; H54.7 Unspecified visual loss; I48.91 Unspecified atrial fibrillation; T46.1X5A Adverse effect of calcium-channel blockers, initial encounter; I10 Essential (primary) hypertension; Z66 Do not resuscitate; I69.320 Aphasia following cerebral infarction; I69.391 Dysphagia following cerebral infarction; R13.10 Dysphagia, unspecified; Z96.653 Presence of artificial knee joint, bilateral; I69.321 Dysphasia following cerebral infarction; Z79.01 Long term (current) use of anticoagulants; E78.5 Hyperlipidemia, unspecified; Z88.8 Allergy status to other drugs, medicaments and biological substances; M19.90 Unspecified osteoarthritis, unspecified site; N18.2 Chronic kidney disease, stage 2 (mild); E78.00 Pure hypercholesterolemia, unspecified; I12.9 Hypertensive chronic kidney disease with stage 1 through stage 4 chronic kidney disease, or unspecified chronic kidney disease; Z87.891 Personal history of nicotine dependence; Z79.899 Other long term (current) drug therapy; Z88.5 Allergy status to narcotic agent
CPT/HCPCS: 36415; 70450; 71045; 80048; 80053; 84436; 84443; 84484; 85025; 93005; 96360; 97161-GP; 99285-25; A9270-GY; J7030